=== PATIENT | female | born 1940 | race Caucasian/White ===

== ENCOUNTER 2017-03-08 09:42 | Outpatient (CLI) | payer MEDICARE, OTHER ==
--- NOTE | 2017-03-08 12:56 | RAD ---
LUMBAR SPINE 3 VIEWS: Date: 03/08/17 HISTORY: 76-year-old female with low back pain. FINDINGS: Minimal disc space narrowing at L5-S1. Mild disc osteophytosis and some mid and lower lumbar spine fa cet arthrosis. Surgical clips overlie the epigastric region. No focal bone lesion. No acute fracture. IMPRESSION: Evidence for lumbar spondylosis. No acute fracture or dislocation, or other acute process. POS: [facility]
== END 2017-03-08 09:43 | disposition home or self-care (01) ==
LOC: RAD-FRANK 09:42
PROVIDERS: ATTEND Nurse Practitioner Family
DX: M54.5 Low back pain (principal); M47.896 Other spondylosis, lumbar region
CPT/HCPCS: 72100

== ENCOUNTER 2017-11-07 20:37 | Observation (INO) | payer MEDICARE, OTHER ==
[2017-11-07] MEDS ORDERED: Lidocaine Viscous Sol 2% 15 ml UD Cup ONE (21:07)
[2017-11-07] MEDS ORDERED: Mag-Al 1200 mg/1200 mg/30 ML UDCUP ONE (21:07)
--- NOTE | 2017-11-07 21:25 | RAD ---
CHEST ONE VIEW PORTABLE: 11/07/17 INDICATION: Chest pain and chest tightness. IMPRESSION: No acute cardiopulmonary abnormality. The examination is not appreciably changed from comparison date d 03/26/16. COMMENTS: No consolidation, pleural effusion, or pneumothorax is evident. Cardiomediastinal silhouette is withi n normal limits. No acute osseous abnormality is evident. POS: [facility]
[2017-11-07 21:56] LABS: #Basophils 0.1 thou/uL (0.0-0.2); #Eosinphils 0.1 thou/uL (0.0-0.7); #Lymphocytes 1.5 thou/uL (1.20-3.40); #Monocytes 0.7 thou/uL (0.11-0.59); %Basophils 0.7 % (0.0-1.0); %Eosinophils 1.7 % (0.0-10.0); %Lymphocytes 20.7 % (21.0-51.0); %Monocytes 9.2 % (0.0-10.0); %Neutrophils 67.7 % (42.0-75.0); Hemoglobin 13.7 g/dL (12.0-16.0); Mean Corpuscular Hemoglobin 32.2 pg (27.0-31.0); Mean Platelet Volume 6.6 fL (7.4-10.4); Platelet Count 328 thou/uL (130-400); RBC Distribution Width 12.7 % (11.5-14.5); Red Blood Cell (RBC) Count 4.25 mill/uL (4.20-5.40); White Blood Cell (WBC) Count 7.4 thou/uL (4.8-10.8)
[2017-11-07 22:16] LABS: ALT (SGPT) 16 U/L (8-55); AST (SGOT) 24 U/L (5-34); Albumin 4.4 g/dL (3.4-4.8); Alkaline Phosphatase 86 U/L (40-150); Anion Gap 15 mmol/L (10-20); BUN (Urea Nitrogen) 20 mg/dL (9.8-20.1); Bilirubin, Total 0.4 mg/dL (0.2-1.2); CK (CPK) 108 U/L (29-168); Calc. Creatinine Clearance 0 mL/min (70-130); Calcium 9.4 mg/dL (7.8-10.44); Carbon Dioxide 28 mmol/L (23-31); Chloride 102 mmol/L (98-107); Estimated GFR-MDRD 45; Globulin 2.8 g/dL (2.4-3.5); Glucose 106 mg/dL (83-110); Potassium 3.7 mmol/L (3.5-5.1); Protein, Total 7.2 g/dL (6.0-8.3); Sodium 141 mmol/L (136-145)
[2017-11-07 22:28] LABS: CKMB 3.5 ng/mL (0-6.6); Troponin I Less than 0.010 ng/mL (< 0.028)
[2017-11-08] MEDS ORDERED: Acetaminophen 325 MG TAB PO PRN (00:58)
[2017-11-08] MEDS ORDERED: Amiodarone HCl 150 MG, Admixture Fee 1 EACH in Dextrose 5% in Water 100 ML IVPB SCH (01:15)
[2017-11-08] MEDS ORDERED: Amiodarone HCl 450 MG, Admixture Fee 1 EACH in Dextrose 5% in Water 250 ML IVPB SCH (01:15)
[2017-11-08 04:23] VITALS: BMI 28.0
[2017-11-08 05:27] LABS: Anion Gap 16 mmol/L (10-20); BUN (Urea Nitrogen) 18 mg/dL (9.8-20.1); Calc. Creatinine Clearance 50 mL/min (70-130); Carbon Dioxide 25 mmol/L (23-31); Chloride 104 mmol/L (98-107); Estimated GFR-MDRD 52; Glucose 109 mg/dL (83-110); Potassium 3.9 mmol/L (3.5-5.1); Sodium 141 mmol/L (136-145)
[2017-11-08 05:33] LABS: Troponin I Less than 0.010 ng/mL (< 0.028)
--- NOTE | 2017-11-08 05:39 | HP ---
CHIEF COMPLAINT: Reflux type symptoms and epigastric discomfort. HISTORY OF PRESENT ILLNESS: This patient is a 77-year-old female who has a past medical history nota ble for multiple arrhythmia issues. The patient reports some history of atrial fibrillation. She godfrey s had 3 prior ablations, which have been of limited success. She is followed by Dr. Graf and saw her last week. The patient presented to the emergency room today complaining of some diffuse chest pres sure without radiation. She had some associated nausea and felt like she was having some reflux type symptoms. She rated it as a 3-4/10 initially, but was asymptomatic at the time of the interview. S he reports that her pain was resolved with the use of a GI cocktail. The patient's workup was negati ve and the plan was for her to discharge to home; however, while they were getting the patient prepar ed for disposition she had a run of nonsustained V-tach over about 10 beats. Therefore, we were call ed for further evaluation. Otherwise, the patient reports she has had some intermittent headache and some chronic GI symptoms related to her irritable bowel syndrome, but nothing new. REVIEW OF SYSTEMS: Notable for urinary incontinence which is chronic. She wears a pad for that. Diana phillips is having some loose stools as part of her irritable bowel syndrome. Otherwise, a 10-system review was unremarkable. PAST MEDICAL HISTORY: Notable for gastroesophageal reflux, atrial fibrillation, macular degeneration , irritable bowel syndrome, hypothyroidism. The patient of note did have an echocardiogram performed in 03/2016 which was essentially normal with a preserved ejection fraction. PAST SURGICAL HISTORY: The patient has had cardiac ablation x3, most recently in [place]. She has al so had [address] Graf, but had significant reaction thought to be allergic and they were subsequently both removed. FAMILY HISTORY: Reviewed, nothing of significance is known. SOCIAL HISTORY: The patient is a nonsmoker, nondrinker, nondrug user. She is . PRIMARY CARE PHYSICIAN: Her PCP is Lianne Giraldo in [place]. CODE STATUS: She is a full code and her surrogate decision maker would be her daughter, Dai. ALLERGIES: None. CURRENT MEDICATIONS: Losartan 100 mg p.o. daily, Lasix 40 mg daily, pantoprazole 40 mg every day, am lodipine 5 mg daily, pravastatin 40 mg day, trazodone 50 mg at bedtime, colestipol 1 gram q.a.m., lev othyroxine 75 mcg every day, Xarelto 20 mg every day, vitamin D3 5000 units every day, ICAPS 280 mg e very day, Centrum Silver 1 p.o. daily. PHYSICAL EXAMINATION: VITAL SIGNS: BP was 136/63, pulse 70, respirations 20, O2 sat 95% on room air. GENERAL APPEARANCE: Age appropriate female, in no distress. She is awake, alert, oriented, pleasant , cooperative. HEENT: PERRL. No OP lesions. NECK: Supple and symmetric without lymphadenopathy, JVD, or carotid bruits. CARDIOVASCULAR: Regular rate and rhythm without murmurs, gallops or rubs. LUNGS: Clear to auscultation bilaterally with good chest wall expansion, air exchange. ABDOMEN: Soft, she has very mild lower abdominal tenderness which she relates to be normal for her I BS. Nondistended, positive bowel sounds, no masses, no organomegaly. EXTREMITIES: Warm and dry. There is trace edema. NEUROLOGIC: Patient is oriented x3. No focal deficits. SKIN: Reveals a small erythematous nodule on the posterior left calf area. PSYCHIATRIC: Normal affect, normal behavior. LABORATORY DATA: White count 7.4, hemoglobin 13.7, platelets 328. Sodium 141, potassium 3.7, chlori de 102, CO2 of 28, BUN 20, creatinine 1.16, glucose 106, calcium 9.4, AST is 26, ALT 16. CK is 108, troponin less than 0.01. BNP 186.6. Chest x-ray shows no consolidation, effusion or pneumothorax, normal cardiac silhouette. ASSESSMENT AND PLAN: 1. Chest pain. The patient had an episode of chest pain which initially appeared to be more cardiac in nature. The patient has had significant prior cardiac assessments and no known history of johnson ry disease. She did have multiple episodes of supraventricular tachycardia with reasonable rate in [facility] emergency department and one episode in which she flipped the axis and widened the QRS complex con sistent with a possible ventricular tachycardia. The patient will be admitted to the telemetry unit in observation status. She will have serial cardiac isoenzymes. The patient has been started on ami odarone load in the emergency department. We will obtain a magnesium level and determine further int ervention based on how she appears on the monitor through the night. 2. Renal: The patient's creatinine is slightly abnormal. She has had similar readings intermittent ly in the past, but it looks like her baseline ranges between the 0.86 and the 1.16 range. We will r echeck in the morning. It is unclear if this represents an acute renal injury. 3. Hypothyroidism. Continue with the patient's usual dose of levothyroxine. 4. Chronic irritable bowel syndrome, stable. 5. History of gastroesophageal reflux. We will continue with the PPI.
[2017-11-08] MEDS ORDERED: Non-Formulary Item 1 EACH (Losartan Potassium [Losartan Potassium] 100 MG) PO SCH (09:00)
[2017-11-08] MEDS ORDERED: Non-Formulary Item 1 EACH (Multivitamin [Multi-Vitamin Daily] 1 TABLET) PO SCH (09:00)
[2017-11-08] MEDS ORDERED: Furosemide 40 MG TAB PO SCH (09:00)
[2017-11-08] MEDS ORDERED: Non-Formulary Item 1 EACH (Cholecalciferol (Vitamin D3) [Vitamin D3] 5,000 UNIT) PO SCH (09:00)
[2017-11-08] MEDS ORDERED: Levothyroxine Sodium 75 MCG TAB PO SCH (09:00)
[2017-11-08] MEDS: Amlodipine 5 MG TAB PO SCH ×2 (10:45→12:55)
[2017-11-08] MEDS: Multivit, Therapeutic 1 TAB PO SCH ×2 (10:46→12:53)
[2017-11-08] MEDS: Losartan 25 MG TAB PO SCH ×2 (10:46→12:55)
[2017-11-08] MEDS: Furosemide 80 MG TAB PO SCH ×2 (10:46→12:55)
[2017-11-08] MEDS ORDERED: ADENOSINE 60 MG/20 ML VIAL ONE (11:23)
--- NOTE | 2017-11-08 13:53 | CON ---
DATE OF CONSULTATION: 11/08/2017 HISTORY OF PRESENT ILLNESS: Ms. Alexander is a very pleasant 77-year-old female I followed for many yea rs. She has had no history of known coronary artery disease in the past. She had a negative stress test a little over a year ago. She has had allergic reaction pacemakers were inserted, then godfrey d to be removed due to sick sinus syndrome. She has had ablations for her tachycardia, for atrial fi brillation and flutter, I believe, and has been doing well since her last ablation little over a year ago. She was at home last couple of days and has been doing well. 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 Around 7:00 last night, she took her blood pressur e, blood pressure was slightly elevated at 144/97. She waited for a while, took it again, was 144/10 1 and she said she felt some chest pressure. She had some uncomfortable typing feeling with some mil d nausea. She does have a history of gastroesophageal reflux disease and she occasionally feels ligh theaded, but when she presented to the emergency room and enzymes are negative. EKG was unremarkable and then prior to being discharged. She had a short run of nonsustained ventricular tachycardia, wa s admitted for further evaluation. PAST MEDICAL HISTORY: Significant for the sick sinus syndrome, two pacemaker insertions and then aga in removal, both on the left and the right infraclavicular areas due to allergic reaction due to prob ably the coating on the pacemakers. She is status post ablation. She has irritable bowel syndrome a nd gastroesophageal reflux disease. SOCIAL HISTORY: She has children who are alive and well. She is a . She has no alcohol or tob acco abuse. FAMILY HISTORY: Noncontributory. MEDICATIONS PRIOR TO ADMISSION: Included losartan, Lasix, Protonix, amlodipine, pravastatin, trazodo ne, colestipol, Xarelto, levothyroxine, and vitamins. ALLERGIES: None. REVIEW OF SYSTEMS: A 12-point review of systems is unremarkable as it was noted in history of presen t illness. She does have some urinary incontinence, however, and some gastroesophageal reflux diseas e and occasionally has some chest pressure, but she is always at rest and not doing exertion. PHYSICAL EXAMINATION: VITAL SIGNS: Reveals a blood pressure 107/53, heart rate is 80 and regular, temperature is afebrile, respiratory rate 16. HEENT: Shows head to be normocephalic and atraumatic. Carotid pulses are present. There were no br uits noted. There is no JVD. The thyroid is not enlarged. Oral mucosa was pink and moist. CHEST: Clear to auscultation without rales, rhonchi or wheezing. She has 2 well healed surgical inc isions under both the right and left infraclavicular areas. CARDIOVASCULAR: Exam reveals a regular rate and rhythm with occasional ectopy. She has no gross mur murs. ABDOMEN: Soft and nontender with positive bowel sounds. No organomegaly or masses are noted. Femor al pulses are present. EXTREMITIES: Showed no clubbing, cyanosis or edema. Pedal pulses are present. NEUROLOGIC: The patient appears to be fully intact. SKIN: Warm and dry. LABORATORY AND DATA: Creatinine of 1.03 with a potassium of 3.9. BNP was 186. Negative cardiac enz ymes were noted. Her WBC is 7.4. Chest x-ray is unremarkable. EKG shows a sinus rhythm with occasi onal ectopy with occasional PACs. There is not a tracing of the nonsustained ventricular tachycardia in the chart from the emergency room, but it was stated that she did have a nonsustained ventricular tachycardia episode. IMPRESSION: 1. Elderly female with some mild chest discomfort which is most likely noncardiac in nature. She di d have a negative stress test a little over a year ago prior to undergoing her last ablation. We jerod l schedule her for a repeat stress test to rule out evidence of underlying ischemia since she did hav e a short run of nonsustained ventricular tachycardia. If this is positive, she will need to undergo further evaluation by cardiac catheterization. If negative, she could be discharged later today. 2. History of arrhythmias. She is status post ablation of atrial fibrillation. She has been doing quite well with this and has had no further problems. She still remains on Xarelto. 3. History of intolerance to pacemaker material. She has had 2 pacemakers removed, both at [facility] t times, almost within 6 months to a year. 4. History of irritable bowel syndrome, gastroesophageal reflux disease. This is stable. It may be some of the etiology of her chest discomfort. 5. Hypothyroidism. We will continue her present medications. Further recommendations will depend o n the results of the stress test, which will be performed later today.
[2017-11-08 14:39] LABS: Troponin I Less than 0.010 ng/mL (< 0.028)
[2017-11-08 15:22] VITALS: BP 124/58; TEMP 98.2
--- NOTE | 2017-11-08 15:25 | NM ---
MYOCARDIAL PERFUSION SCAN: INDICATIONS: Chest pain. TECHNIQUE: The patient was given 30 millicuries of technetium labeled sestamibi for stress imaging and 9.5 sam curies for rest imaging. The patient was stressed according to adenosine protocol. The left ventricle was imaged with SPECT imaging with CT attenuation. FINDINGS: There is no evidence of reversible ischemia. Symmetric activity loss in the inferior wall is seen on stress and rest images. There is mild left ventricular dilatation. Wall motion survey shows mild hypokinesis and dyskinesis; however, ejection fraction is recorded at 69%. IMPRESSION: No evidence of reversible ischemia. POS: [facility]
[2017-11-08] MEDS ORDERED: traZODone HCl 50 MG TAB PO SCH (21:00)
[2017-11-08] MEDS ORDERED: Rivaroxaban 10 MG TAB PO SCH (21:00)
[2017-11-08] MEDS ORDERED: Non-Formulary Item 1 EACH (Rivaroxaban [Xarelto] 20 MG) PO SCH (21:00)
[2017-11-08] MEDS ORDERED: Atorvastatin Calcium 10 MG TAB PO SCH (21:00)
[2017-11-08] MEDS ORDERED: Pravastatin Sodium 40 MG TAB PO SCH (21:00)
--- NOTE | 2017-11-08 23:21 | DIS ---
DATE OF ADMISSION: 11/08/2017 DATE OF DISCHARGE: 11/08/2017 PRIMARY CARE PHYSICIAN: Dr. Lianne Crane. DISCHARGE DIAGNOSES: 1. Chest pain. 2. Nonsustained ventricular tachycardia. CONDITION OF PATIENT AT THE TIME OF DISCHARGE: Stable. I assessed Ms. Alexander on the day of discharg e. She reports the chest pain has resolved. Vital signs are stable. S1 and S2 are heard, regular. Lungs are clear to auscultation bilaterally. CONSULTATIONS DURING THIS HOSPITALIZATION: Cardiology, Dr. Graf. DISCHARGE MEDICATIONS: No change was made to her preadmission home medications as dictated on histor y and physical note dated ON 11/07/[address] Hannah. HOSPITAL COURSE: Ms. Alexander is a pleasant 77-year-old lady who was admitted to [facility] on 11/07/2017 for chest pain. Please refer to Dr. Hannah's history and physical note d ated on 11/07/2017 for further details. She was seen by Cardiology service. Her chest pain resolved . She underwent nuclear stress test on 11/08/2017, which did not show any evidence of reversible isc hemia. Her left ventricular ejection fraction was 69%. She had mild left ventricular dilatation. W all motion survey showed mild hypokinesis and dyskinesis. She is advised to resume all her preadmission home medications including anticoagulants. Many thanks for allowing me to participate in your patient's care. Please feel free to contact me wi th any questions or concerns. On the day of discharge, she had a normal Chem-7. DISCHARGE DESTINATION: Home.
== END 2017-11-08 16:59 | disposition home or self-care (01) ==
LOC: ERS 20:37 → 2SW 11-08 02:03
PROVIDERS: ADMIT Internal Medicine; ATTEND Internal Medicine
DX: R07.89 Other chest pain (principal); I48.91 Unspecified atrial fibrillation; K21.9 Gastro-esophageal reflux disease without esophagitis; K58.9 Irritable bowel syndrome, unspecified; E03.9 Hypothyroidism, unspecified; I49.5 Sick sinus syndrome; Z79.01 Long term (current) use of anticoagulants; Z79.899 Other long term (current) drug therapy; Z98.890 Other specified postprocedural states
CPT/HCPCS: 71045; 78452; 80048; 80053; 82550; 82553; 83735; 83880; 84484 ×3; 85025; 93005; 93017; 96365; 96366; 96374; 96376; 99285; A9500; G0378 ×2; 36415; J0153; J0282; J7070

== ENCOUNTER 2018-03-04 21:26 | Inpatient (IN) | payer MEDICARE, OTHER ==
[~2018-03-04 21:26] MED LIST: Iopamidol 370 76% 100 ML VIAL ONE
[2018-03-04 21:57] LABS: #Lymphocytes 1.1 thou/uL (1.20-3.40); #Monocytes 0.7 thou/uL (0.11-0.59); #Neutrophils 8.1 thou/uL (1.40-6.50); %Basophils 0.4 % (0.0-1.0); %Eosinophils 0.3 % (0.0-10.0); %Lymphocytes 11.1 % (21.0-51.0); %Monocytes 6.7 % (0.0-10.0); %Neutrophils 81.5 % (42.0-75.0); Mean Corpuscular HGB CONC 33.8 g/dL (32.0-36.0); Mean Corpuscular Hemoglobin 30.4 pg (27.0-31.0); Mean Corpuscular Volume 89.9 fL (78.0-98.0); Mean Platelet Volume 7.8 fL (7.4-10.4); Platelet Count 484 thou/uL (130-400); RBC Distribution Width 12.8 % (11.5-14.5); Red Blood Cell (RBC) Count 4.28 mill/uL (4.20-5.40)
--- NOTE | 2018-03-04 22:07 | RAD ---
PORTABLE CHEST: HISTORY: Abdomen and chest pain. COMPARISON: 11/07/2017 FINDINGS: Heart size is within normal limits for the portable technique. There are atherosclerotic changes of the aorta. The lungs are clear of infiltrates. IMPRESSION: No active intrathoracic disease. POS: [facility]
[2018-03-04 22:12] LABS: ALT (SGPT) 24 U/L (8-55); AST (SGOT) 39 U/L (5-34); Albumin 4.4 g/dL (3.4-4.8); Alkaline Phosphatase 85 U/L (40-150); Anion Gap 17 mmol/L (10-20); BUN (Urea Nitrogen) 17 mg/dL (9.8-20.1); Bilirubin, Total 0.4 mg/dL (0.2-1.2); CK (CPK) 282 U/L (29-168); Calc. Creatinine Clearance 0 mL/min (70-130); Calcium 9.8 mg/dL (7.8-10.44); Carbon Dioxide 27 mmol/L (23-31); Chloride 100 mmol/L (98-107); Estimated GFR-MDRD 35; Globulin 3.5 g/dL (2.4-3.5); Glucose 152 mg/dL (83-110); Lipase 19 U/L (8-78); Potassium 3.7 mmol/L (3.5-5.1); Protein, Total 7.9 g/dL (6.0-8.3); Sodium 140 mmol/L (136-145)
[2018-03-04 22:15] LABS: Troponin I Less than 0.010 ng/mL (< 0.028)
[2018-03-04 22:19] LABS: CKMB 7.1 ng/mL (0-6.6)
[2018-03-04 22:20] LABS: Bilirubin Small (Negative); Blood, Urine Negative (Negative); Clarity TURBID (Clear); Glucose, Urine (Dipstick) Negative (Negative); Leukocyte Large (Negative); Nitrite Negative (Negative); Protein, Urine (Dipstick) Negative (Neg-Trace); Specific Gravity, Urine 1.017 (1.002-1.036); pH, Urine 5.5 (5.0-9.0)
[2018-03-04 22:29] LABS: Bacteria/HPF 4+ HPF (None Seen)
[2018-03-04 22:30] LABS: Pathc Cast-AUWi Flag 5.66 (0-2.49)
[2018-03-04 22:37] LABS: Hyaline Casts/LPF 7-10 HYALINE CAST LPF (0-3 Hyaline); RBC/HPF 0-3 HPF (0-3)
[2018-03-04 22:38] LABS: Crystals/HPF 1+ CA OXALATE HPF (Negative)
[2018-03-04] MEDS ORDERED: Ondansetron PF 4 MG/2 ML Vial ONE ×2 (22:41→22:52)
[2018-03-04] MEDS ORDERED: Morphine 4 MG/ML VIAL ONE (22:41)
--- NOTE | 2018-03-04 23:13 | CT ---
CT ABDOMEN AND PELVIS WITH INTRAVENOUS CONTRAST: HISTORY: Abdominal pain, generalized, onset the day after Thanksgiving. Chronic diarrhea. History of appende ctomy, cholecystectomy, hernia repair, and hysterectomy. The hernia repair was reportedly a wrap for reflux. COMPARISON: CT examination from 04/13/2010. FINDINGS: The lung bases are clear. The liver has a somewhat elongated right lobe, measuring 21 cm in length. The left lobe is small. T he spleen is normal in size. The pancreas shows no evidence of mass. The gallbladder has been remov ed. There is some minimal biliary ductal prominence, which is felt to be on the basis of the cholecy stectomy. The right adrenal gland is normal. The left adrenal mass is again identified. It measures approxima tely 2.5 cm in size and appears fairly stable. The right and left kidneys are normal in size and not obstructed. Hypodensities in both kidneys, which are too small to characterize, statistically most likely represent cysts. There is no significant periaortic or mesenteric adenopathy. The patient appears to have undergone an anterior abdominal wall hernia repair. There is an abnormal pattern of the small bowel. This is probably the sequela of the multiple surgeries. A small groupi ng of the small bowel, specifically a portion of the ileum, is displaced along the right lateral andria in of the inferior portion of the right lobe of the liver. In addition, in the central abdomen, is a centrally grouped collection of small bowel, some of which shows some mild dilatation, suggesting th is is a partial small bowel obstruction. This is probably related to either adhesions or some type of internal hernia causing this appearance. This central grouping of bowel begins in the mid abdomen a nd extends to the pelvis. Colonic diverticulosis is noted. These changes are most pronounced in the sigmoid colon region. No evidence of any significant free fluid. No adenopathy or mass. IMPRESSION: 1. Abnormal appearance to the small bowel. Specifically, there is a centrally grouped collection of small bowel, which is in the mid abdomen and upper pelvis region. Some of the loops within this area are dilated, compatible with a partial small bowel obstruction, associated with these findings. Thi s is either related to a group of small bowel loops that are contained by adhesions or some type of i nternal hernia. 2. Postoperative cholecystectomy change. 3. Colonic diverticulosis. POS: [facility]
[2018-03-05 02:24] LABS: Lactic Acid 1.4 mmol/L (0.5-2.2)
[2018-03-05] MEDS ORDERED: Ondansetron ODT 4 MG TAB SL PRN (03:58)
[2018-03-05] MEDS ORDERED: Ondansetron PF 4 MG/2 ML Vial IVP PRN ×2 (03:58→08:51)
[2018-03-05] MEDS ORDERED: Morphine 4 MG/ML VIAL SLOW IVP PRN (03:58)
[2018-03-05] MEDS ORDERED: D5 1/2 NS w/20 mEq KCL 1,000 ML IV SCH (04:00)
[2018-03-05 04:48] VITALS: BMI 30.5
[2018-03-05] MEDS ORDERED: hydrALAZINE 20 MG/ML VIAL SLOW IVP PRN (08:51)
[2018-03-05] MEDS ORDERED: Acetaminophen 1,000 MG in Premix Bag 1 BAG IVPB PRN (08:55)
[2018-03-05] MEDS ORDERED: Ketorolac Tromethamine 30 MG/ML VIAL IVP PRN (08:55)
[2018-03-05] MEDS ORDERED: Famotidine/PF 20 mg/2ml Vial SLOW IVP SCH ×2 (09:00→21:00)
[2018-03-05] MEDS ORDERED: Lactated Ringer's 1,000 ML IV SCH (09:00)
--- NOTE | 2018-03-05 09:11 | RAD ---
AP LOWER CHEST AND UPPER ABDOMEN: History: NG tube placement. FINDINGS: AP view of lower chest and upper abdomen demonstrates NG tube in place. The side port is just above t he gastroesophageal junction. The distal aspect is in the left upper quadrant of the abdomen. The NG tube should be advanced approximately 8-10 cm to be in optimum position. IMPRESSION: NG tube needs to be advanced approximately 8-10 cm. POS: [facility]
[2018-03-05] MEDS ORDERED: Magnesium Citrate 300 ML BOT PER TUBE SCH ×2 (10:00→12:45)
--- NOTE | 2018-03-05 12:10 | HP ---
HISTORY OF PRESENT ILLNESS: Dayanara Alexander is a 77-year-old female, well known to me. She has performed numerous operations before in the past. She is admitted on this occasion as she is noted to have chronic diarrhea, 1 to 2 loose stools a day. She took Imodium a few days ago, has experienced no bowel movement since Sunday (today is Sunday). The patient had some abdominal discomfort, presented to the emergency room, had a CAT scan demonstrating changes possibly consistent with a partial bowel obstruction. She does have, however, significant constipation on my personal overview of her CAT scan. There is some mildly dilated loops of small bowel. ALLERGIES: NONE. TOBACCO: None. ALCOHOL: Socially. MEDICATIONS: 1. Omeprazole daily. 2. Colestipol daily. 3. Vitamin D3 daily. 4. Amlodipine 5 mg b.i.d. 5. Levothyroxine 75 mcg a day. 6. Furosemide 80 mg a day. 7. Protonix 40 mg b.i.d. 8. Multivitamins daily. 9. Losartan 100 mg daily. 10. Trazodone 100 mg at bedtime. 11. Xarelto 20 mg at bedtime. 12. Pravachol 40 mg at bedtime. PAST SURGICAL HISTORY: In 1998, I performed laparoscopic adhesiolysis to gain access to outside laparoscopic video floppy Jett fundoplication and repair of her hiatal hernia. In December 1998, laparotomy, evacuation of intraabdominal abscess, resection, debridement of old mesh, and adhesiolysis to gain access to the above-described procedures. In 2004, Dr. Gonzalez performed upper endoscopy, noting an intact fundoplication, normal upper endoscopy. In 2010, the patient had incisional hernia, laparoscopic adhesiolysis, and reduction of incarcerated incisional hernia and repair with a 10 x 15 cm Proceed mesh with transabdominal fascia, nonabsorbable sutures placed. The patient had open cholecystectomy in 1980, midline upper incision. She had a total abdominal hysterectomy, bilateral salpingo-oophorectomy in the past. She had appendectomy with a cholecystectomy. She had the procedures that are performed as described above. The patient has had two pacemakers in the past removed because of wound site infections and wound problems. She has had an echocardiogram in the past with normal ejection fraction, normal cardiac catheterization in 2008. She is followed by Dr. Graf. The patient had a colonoscopy in 2012, noting benign findings on biopsy. She does not recall when she last had an EGD. PAST MEDICAL HISTORY: 1. Mild reflux, although much improved since her anti-reflux surgery, although she does take a PPI for mild reflux symptoms. She does not recall when Dr. Gonzalez performed her last upper endoscopy. 2. Hypertension. 3. Hypothyroidism, on anticoagulation, Xarelto. She is followed by Dr. Graf, last saw her 2 to 3 months ago and on the records, it is noted that she had cardiac stress test in October 2017 with normal ejection fraction and no reversible ischemia. REVIEW OF SYSTEMS: Noncontributory. NG tube in place, has had minimal output. PHYSICAL EXAMINATION: VITAL SIGNS: Height 5 feet, weight 161 pounds, 30 BMI. Temperature 97.9, pulse 64, blood pressure 119/66. HEAD, EARS, EYES, NOSE, AND THROAT: Unremarkable. LUNGS: Clear to auscultation. CARDIAC: Regular rhythm without murmur or gallop. Scars from pacemaker placement removal, left upper chest. ABDOMEN: Intact upper incision without hernia. Soft with occasional bowel sounds. No significant tympany. EXTREMITIES: Unremarkable. LABORATORY DATA: White count 10, hemoglobin 13. Basic metabolic profile is normal with mildly elevated creatinine to 1.43, which she has had intermittently in the past. ASSESSMENT AND PLAN: 1. Abdominal pain and obstipation after taking Imodium. She has chronic diarrhea, 1 to 2 loose stools a day, she describes these as small and moderate volume. Since taking Imodium, she has not had a bowel movement last week. On review of her CAT scan, she has significant constipation and some mild dilatation of small bowel segments, but no clear indication of a bowel obstruction. She has intact abdominal wall after multiple operations for incisional hernia. No evidence of incisional hernia currently. At this point, we will obtain a small-bowel follow-through, abdominal x-rays, and await the results. I expect that we will be able to remove her NG tube later today. 2. Chronic anticoagulation due to atrial fibrillation intermittently. 3. History of two pacemakers placed and removed. 4. Hypertension. 5. Hypothyroidism. Job ID: [id number]
--- NOTE | 2018-03-05 14:25 | RAD ---
GASTROGRAFIN SMALL BOWEL: History: Small bowel obstruction. FINDINGS: Initial supine marble installation helper abdomen radiograph demonstrates a nonspecific bowel gas pattern. There is contra st material noted in the urinary bladder. Multiple contrast opacified small bowel loops are present. Contrast opacified the right hemicolon on the 1 hour 30 minutes. Contrast opacified in the transverse colon in 1 hour 45 minutes image. IMPRESSION: No evidence of high grade obstruction. POS: [facility]
[2018-03-05] MEDS: Amlodipine 5 MG TAB PO SCH (20:03)
[2018-03-05] MEDS ORDERED: traZODone HCl 50 MG TAB PO SCH (21:00)
[2018-03-05] MEDS ORDERED: Non-Formulary Item 1 EACH (Rivaroxaban [Xarelto] 20 MG) PO SCH (21:00)
[2018-03-05] MEDS ORDERED: Pravastatin Sodium 40 MG TAB PO SCH (21:00)
[2018-03-06] MEDS ORDERED: Levothyroxine Sodium 75 MCG TAB PO SCH (06:00)
[2018-03-06] MEDS ORDERED: Polyethylene Glycol 3350 17 GM Packet PO SCH (09:00)
[2018-03-06] MEDS ORDERED: Multivit, Therapeutic 1 TAB PO SCH (09:00)
[2018-03-06] MEDS ORDERED: Furosemide 80 MG TAB PO SCH (09:00)
[2018-03-06] MEDS ORDERED: OMEPRAZOLE PO SCH (09:00)
[2018-03-06] MEDS ORDERED: Losartan 25 MG TAB PO SCH (09:00)
[2018-03-06] MEDS ORDERED: SODIUM BICARBONATE PO SCH (09:00)
[2018-03-06] MEDS: Amlodipine 5 MG TAB PO SCH (09:02)
--- NOTE | 2018-03-06 11:35 | PRG ---
DATE OF SERVICE: 03/06/2018 SUBJECTIVE: Ms. Alexander is doing well today. She had a small-bowel follow-through yesterday, it was normal. She has had multiple bowel movements. She complains of mild hemorrhoid problems and bleeding. She has had recent colonoscopies. OBJECTIVE: VITAL SIGNS: Temperature 98.4 degrees, heart rate 76, blood pressure 104/60. LUNGS: Clear to auscultation. CARDIAC: Regular rate and rhythm without murmur or gallop. ABDOMEN: Flat, soft, and nontender. EXTREMITIES: Unremarkable. LABORATORY DATA: Laboratories, none. ASSESSMENT AND PLAN: Resolved partial bowel obstruction and constipation. Keep followup appointment with Dr. Gonzalez. This event occurred after consuming Imodium, which she often does for her one or two loose stools a day. She also takes cholestyramine with meals. She has asked that she can continue doing this. I said, do so if it helps with her loose stools. I have advised her to minimize Imodium use and to use fiber daily. She will follow up with me as needed if she continues to have problems with her hemorrhoids. She will keep her appointment with Dr. Gonzalez next week. Job ID: [id number]
[2018-03-06 12:03] VITALS: BP 122/72; TEMP 98.2
[2018-03-06] MEDS ORDERED: Citrucel 500 MG TAB PO SCH (21:00)
--- NOTE | 2018-03-07 03:11 | DIS ---
DATE OF ADMISSION: 03/05/2018 DATE OF DISCHARGE: 03/06/2018 DISCHARGE DIAGNOSES: 1. 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 2. More likely primary problem is constipation related to taking Imodium, which she commonly does for one or two loose stools a day. PROCEDURES AT THIS HOSPITALIZATION: CT scan of abdomen and pelvis revealed significant constipation, not reported by radiologist, but some minimally dilated small bowel loops, possibly consistent with a partial bowel obstruction. Multiple prior operations; laparoscopic Jett fundoplication performed in the past and open cholecystectomy in 1980. Laparotomy, evacuation of intraabdominal abscess, resection, debridement of old mesh, and adhesiolysis in 2004. Upper endoscopy by Dr. Gonzalez in 2010. Incisional hernia repair, laparoscopic with mesh and reduction of incarcerated incisional hernia and repair with 10 x 15 cm Proceed mesh. HISTORY: A 77-year-old female with chronic loose stools, takes cholestyramine and occasional Imodium. She took an Imodium and had abdominal pain, cramps, and nausea. She was admitted with a CAT scan, suggesting a partial bowel obstruction. She had an NG tube placed overnight. She underwent a small bowel follow-through colon. She had multiple bowel movements. She has been given Mag citrate. She complains of bleeding hemorrhoids afterwards. She is on Xarelto at home. DISCHARGE MEDICATIONS: The patient at this time is discharged home to resume her home medications of omeprazole, colestipol, vitamin D3, amlodipine, levothyroxine, furosemide, Protonix, multivitamins, losartan, trazodone, Xarelto, Pravachol, and take Preparation H for hemorrhoids, minimize Imodium use, and to use fiber daily, Citrucel, or other fiber zngs-[id number]-bumgpzd replacement. DISCHARGE INSTRUCTIONS: Keep appointment with Dr. Gonzalez. Follow up with Dr. Day for any persistent bleeding hemorrhoids, warm to hot baths 2 to 3 times a day for any hemorrhoids. Preparation H [id number]-[id number] hemorrhoidal remedies. Job ID: [id number]
--- NOTE | 2018-03-08 15:05 | DIS ---
DATE OF ADMISSION: 03/05/2018 DATE OF DISCHARGE: 03/06/2018 ADDENDUM: Addition to her diagnosis; urinary tract infection, Escherichia coli greater than . Addition to discharge medications; Augmentin 500 b.i.d. for five days. Job ID: [id number]
--- NOTE | 2018-03-09 11:57 | EKG ---
Test Reason : Blood Pressure : / mmHG Vent. Rate : 065 BPM Atrial Rate : 065 BPM P-R Int : 184 ms QRS Dur : 098 ms QT Int : 514 ms P-R-T Axes : 072 -03 151 degrees QTc Int : 534 ms Normal sinus rhythm with sinus arrhythmia Left ventricular hypertrophy with repolarization abnormality Prolonged QT Abnormal ECG Confirmed by ANISHA ARGUETA, ARRON ([id number]), photographic editor VIKTOR CUADRA ([id number]) on 03/09/2018 11:57:05 AM Referred By: Confirmed By:ARRON LANCASTER MD
== END 2018-03-06 12:55 | disposition home or self-care (01) | DRG 392 ==
LOC: ERS 21:26 → SURG A 03-05 03:55
PROVIDERS: ADMIT Specialist; ATTEND Specialist
DX: K59.00 Constipation, unspecified (principal); K56.690 Other partial intestinal obstruction; N39.0 Urinary tract infection, site not specified; I48.2 Chronic atrial fibrillation; Z79.01 Long term (current) use of anticoagulants; Z95.0 Presence of cardiac pacemaker; I10 Essential (primary) hypertension; E03.9 Hypothyroidism, unspecified; B96.20 Unspecified Escherichia coli [E. coli] as the cause of diseases classified elsewhere
CPT/HCPCS: 36415; 71045; 74177; 74250; 80053; 81003; 81015; 82550; 82553; 83605; 83690; 83880; 84484; 85025; 87040; 87077; 87086; 87186; 93005; J0131; J1956; J2270; J2405

== ENCOUNTER 2018-03-10 12:45 | Emergency (ER) | payer MEDICARE, OTHER ==
[2018-03-10 13:29] LABS: #Lymphocytes 1.3 thou/uL (1.20-3.40); #Monocytes 0.7 thou/uL (0.11-0.59); #Neutrophils 8.4 thou/uL (1.40-6.50); %Basophils 0.4 % (0.0-1.0); %Eosinophils 0.5 % (0.0-10.0); %Lymphocytes 12.8 % (21.0-51.0); %Monocytes 6.9 % (0.0-10.0); %Neutrophils 79.5 % (42.0-75.0); Hemoglobin 12.3 g/dL (12.0-16.0); Mean Corpuscular HGB CONC 33.6 g/dL (32.0-36.0); Mean Corpuscular Hemoglobin 30.5 pg (27.0-31.0); Mean Corpuscular Volume 90.8 fL (78.0-98.0); Mean Platelet Volume 6.9 fL (7.4-10.4); Platelet Count 413 thou/uL (130-400); RBC Distribution Width 12.7 % (11.5-14.5); Red Blood Cell (RBC) Count 4.04 mill/uL (4.20-5.40); White Blood Cell (WBC) Count 10.5 thou/uL (4.8-10.8)
[2018-03-10 13:39] LABS: INR-International Normal Ratio 1.3; PTT 42.1 SEC (22.9-36.1); Prothrombin Time 16.2 SEC (12.0-14.7)
[2018-03-10] MEDS ORDERED: Iopamidol 370 76% 100 ML VIAL ONE (13:42)
[2018-03-10 13:50] LABS: ALT (SGPT) 20 U/L (8-55); AST (SGOT) 21 U/L (5-34); Albumin 3.8 g/dL (3.4-4.8); Alkaline Phosphatase 88 U/L (40-150); Anion Gap 13 mmol/L (10-20); BUN (Urea Nitrogen) 11 mg/dL (9.8-20.1); Bilirubin, Total 0.7 mg/dL (0.2-1.2); Calc. Creatinine Clearance 0 mL/min (70-130); Calcium 9.2 mg/dL (7.8-10.44); Carbon Dioxide 27 mmol/L (23-31); Chloride 100 mmol/L (98-107); Estimated GFR-MDRD 55; Globulin 2.8 g/dL (2.4-3.5); Glucose 99 mg/dL (83-110); Potassium 3.1 mmol/L (3.5-5.1); Protein, Total 6.6 g/dL (6.0-8.3); Sodium 137 mmol/L (136-145)
[2018-03-10] MEDS ORDERED: Potassium Chloride 20 MEQ TAB ONE (14:26)
--- NOTE | 2018-03-10 16:43 | CT ---
CT ABDOMEN AND PELVIS WITH IV CONTRAST: 03/10/2018 HISTORY: Abdominal pain and rectal bleeding with associated nausea. COMPARISON: 03/04/2018 FINDINGS: There is dependent bibasilar atelectasis. Post cholecystectomy changes are seen. Surgical clips are seen in the upper abdomen. Subcentimeter, adl-zkcug-no-characterize, hypodense lesions are again seen, with stable exophytic cys ts at the lateral aspect, mid portion, left kidney. A stable left adrenal mass is again noted and unchanged in size. There is a stable subcentimeter, izi-dmqzg-dw-characterize hypodense lesion in the lateral segment of the left hepatic lobe. The spleen, pancreas, right adrenal gland, and urinary bladder demonstrate a normal CT appearance. Again noted within the central abdomen and upper pelvis are dilated loops of bowel, which are fluid a nd gas filled. These dilated loops of bowel are grouped within the central abdomen and pelvis, and t he dilated loops of small bowel area again worrisome for a partial small bowel obstruction. Findings could be related to a closed loop type obstruction due to either adhesion or internal hernia. Never -the-less, this is a stable finding. There now appears to be mild thickening involving the rectum, with adjacent perirectal inflammatory c hanges, suggesting proctitis. Colonic diverticulosis is present. There is evidence of a hysterectomy. Vascular calcifications are seen in the abdominal aorta and iliac arteries. No free fluid, fluid collection, or lymphadenopathy is seen in the abdomen or pelvis. IMPRESSION: 1. Interval development of mild circumferential bowel wall thickening involving the rectum with dayana cent perirectal inflammatory changes. Findings are suggestive of proctitis. 2. Dilated loops of small bowel within the central lower abdomen and pelvis, similar to the prior st udy, which are dilated and fluid-filled. Findings are again worrisome for a partial small bowel obst ruction, which may be related to a closed loop type obstruction, secondary to either adhesions or an internal hernia. 3. Stable left adrenal lesion. POS: [facility]
== END 2018-03-10 17:29 | disposition home or self-care (01) ==
LOC: ERS 12:45
DX: K62.5 Hemorrhage of anus and rectum (principal); K56.600 Partial intestinal obstruction, unspecified as to cause; K62.89 Other specified diseases of anus and rectum; I48.91 Unspecified atrial fibrillation; E78.5 Hyperlipidemia, unspecified; I11.0 Hypertensive heart disease with heart failure; I50.9 Heart failure, unspecified; E05.90 Thyrotoxicosis, unspecified without thyrotoxic crisis or storm; K21.9 Gastro-esophageal reflux disease without esophagitis; Z79.899 Other long term (current) drug therapy; Z79.01 Long term (current) use of anticoagulants
CPT/HCPCS: 36415; 74177; 80053; 82274; 85025; 85610; 85730; 86850; 86900; 86901

== ENCOUNTER 2018-03-12 12:46 | Outpatient (CLI) | payer MEDICARE, OTHER ==
[2018-03-12] MEDS ORDERED: Magnevist 469MG/ML 20 ML VIAL ONE (17:12)
--- NOTE | 2018-03-12 18:07 | MRI ---
MRI OF THE PELVIS WITHOUT AND WITH CONTRAST 03/12/18 HISTORY: Anorectal pain and rectal bleeding. TECHNIQUE: Multiplanar and multisequence MRI images were obtained in the pelvis without contrast. FINDINGS: Scattered diverticula are seen in the sigmoid colon. There is circumferential thickening of the wall of the rectum extending down to the anus. The wall measures approximately 1.2 cm in thickness. There is surrounding edema in the mesorectal fat. The thickened wall also is edematous demonstrating high T 2 signal. No enlarged pelvic lymph nodes are seen. No marrow signal abnormality is present. IMPRESSION: 1. There is thickening of the rectum extending down to the anus. This is nonspecific and could b e secondary to focal protocolitis. A malignancy cannot be entirely excluded. Correlate with recent bi opsies. 2. Diverticulosis. POS: [facility]
== END 2018-03-12 12:47 | disposition home or self-care (01) ==
LOC: MRI 12:46
PROVIDERS: ATTEND Internal Medicine Gastroenterology
DX: K62.5 Hemorrhage of anus and rectum (principal); K62.89 Other specified diseases of anus and rectum; K57.30 Diverticulosis of large intestine without perforation or abscess without bleeding
CPT/HCPCS: 72197; A9579

== ENCOUNTER 2018-05-02 09:19 | Inpatient (IN) | payer MEDICARE, OTHER ==
[2018-05-02] MEDS ORDERED: ISOVUE-370 76%-LOCM 1 ML ONE (09:37)
[2018-05-02 10:38] LABS: ALT (SGPT) 22 U/L (8-55); AST (SGOT) 29 U/L (5-34); Albumin 4.5 g/dL (3.4-4.8); Alkaline Phosphatase 75 U/L (40-150); Anion Gap 21 mmol/L (10-20); BUN (Urea Nitrogen) 25 mg/dL (9.8-20.1); Bilirubin, Total 0.5 mg/dL (0.2-1.2); Calc. Creatinine Clearance 0 mL/min (70-130); Carbon Dioxide 19 mmol/L (23-31); Chloride 107 mmol/L (98-107); Estimated GFR-MDRD 45; Globulin 3.1 g/dL (2.4-3.5); Glucose 126 mg/dL (83-110); Potassium 4.1 mmol/L (3.5-5.1); Protein, Total 7.6 g/dL (6.0-8.3); Sodium 143 mmol/L (136-145)
[2018-05-02] MEDS ORDERED: Ondansetron PF 4 MG/2 ML Vial ONE (10:55)
[2018-05-02] MEDS ORDERED: Morphine 4 MG/ML VIAL ONE (10:55)
--- NOTE | 2018-05-02 11:20 | CT ---
CT ABDOMEN AND PELVIS WITH IV CONTRAST: DATE: 05/02/2018. PROVIDED CLINICAL HISTORY: Abdominal pain. FINDINGS: Comparison is made with the study dated 03/10/2018. The visualized lung bases are free of significant opacity. The liver, spleen, pancreas, kidneys, and adrenal glands demonstrate a stable CT appearance. Multiple dilated loops of fluid-filled small bowel are present within the central mid abdomen, simila r to the prior examination. There is transition to more normal caliber bowel seen in the right lower quadrant. The colon is relatively decompressed but does contain fluid. There is no evidence for pn eumatosis or portal venous gas. There is no evidence for pneumoperitoneum or significant free intrap eritoneal fluid. Sigmoid colonic diverticulosis is again demonstrated. The thickening and inflammatory changes involv ing the rectum described on the prior examination are no longer evident. Scattered vascular calcifications are seen. The osseous structures demonstrate no concerning lytic or blastic lesions. Surgical clips are seen i n the pelvis. IMPRESSION: Findings compatible with small bowel obstruction as described above. POS: Joshua
[2018-05-02 11:35] LABS: #Lymphocytes 0.5 thou/uL (1.20-3.40); #Monocytes 0.2 thou/uL (0.11-0.59); #Neutrophils 10.8 thou/uL (1.40-6.50); %Basophils 0.2 % (0.0-1.0); %Eosinophils 0.1 % (0.0-10.0); %Lymphocytes 4.5 % (21.0-51.0); %Monocytes 1.9 % (0.0-10.0); %Neutrophils 93.3 % (42.0-75.0); Hemoglobin 12.9 g/dL (12.0-16.0); Mean Corpuscular HGB CONC 32.6 g/dL (32.0-36.0); Mean Corpuscular Hemoglobin 30.4 pg (27.0-31.0); Mean Corpuscular Volume 93.4 fL (78.0-98.0); Mean Platelet Volume 7.7 fL (7.4-10.4); Platelet Count 351 thou/uL (130-400); RBC Distribution Width 13.3 % (11.5-14.5); Red Blood Cell (RBC) Count 4.25 mill/uL (4.20-5.40); White Blood Cell (WBC) Count 11.6 thou/uL (4.8-10.8)
[2018-05-02] MEDS ORDERED: Fentanyl 100 MCG/2 ML VIAL ONE (13:01)
[2018-05-02] MEDS ORDERED: Benzocaine 20% Spray 60 ML CAN ONE (13:08)
[2018-05-02] MEDS ORDERED: Morphine 4 MG/ML VIAL SLOW IVP PRN ×2 (13:14→13:56)
[2018-05-02] MEDS ORDERED: hydrALAZINE 20 MG/ML VIAL SLOW IVP PRN (13:14)
[2018-05-02] MEDS ORDERED: Acetaminophen 1,000 MG in Premix Bag 1 BAG IVPB PRN (13:16)
--- NOTE | 2018-05-02 13:53 | RAD ---
ABDOMEN 1 VIEW: HISTORY: Abdominal pain and diarrhea, evaluate NG tube position. FINDINGS: Exam includes the upper abdomen and lower chest. An NG tube is in place with the tip in the stomach, the side hole is just at or slightly beyond the region of the GE junction. No significant acute pro cess in the chest. There is gas in the small bowel and colon. IMPRESSION: Nasogastric tube with the tip in the stomach, side hole is near the level of the expected gastroesoph ageal junction region. Surgical clips at the gastroesophageal junction. Moderate gas in large and s mall bowel. POS: [facility]
[2018-05-02 14:14] LABS: Bilirubin Negative (Negative); Blood, Urine Large (Negative); Clarity CLEAR (Clear); Glucose, Urine (Dipstick) Negative (Negative); Leukocyte Moderate (Negative); Nitrite Negative (Negative); Protein, Urine (Dipstick) Negative (Neg-Trace); Specific Gravity, Urine 1.029 (1.002-1.036); Urobilinogen 0.2 mg/dL (0.2-1.0); pH, Urine 6.5 (5.0-9.0)
[2018-05-02 14:16] LABS: Bacteria/HPF 2+ HPF (None Seen); Hyaline Casts/LPF 0-3 HYALINE CAST LPF (0-3 Hyaline); Pathc Cast-AUWi Flag 0.43 (0-2.49); RBC/HPF 21-50 HPF (0-3); Squamous Epithelial 0-3 HPF (0-3)
[2018-05-02 14:30] LABS: Crystals/HPF 1+ CA OXALATE HPF (Negative)
--- NOTE | 2018-05-02 15:59 | HP ---
HISTORY OF PRESENT ILLNESS: Dayanara Alexander is a 77-year-old female, presents to the emergency room with acute onset of initially loose bowels, abdominal pain, distention, bloating. She has had a previous Jett fundoplication and cannot experience emesis. She was just discharged from the hospital in March of 2018 with a similar problem. She had a small-bowel follow-through that traversed to the colon within an hour and a half, but there remained some dilated loops of small bowel. In the interval, the patient is doing well. She presented last night with symptoms and presents to the emergency room today. CAT scan revealed changes consistent with bowel obstruction with markedly dilated stomach and bowel loops. Her basic metabolic profile is normal except for mild acute kidney injury. Creatinine 1.16, BUN 25, sodium 143, and potassium 4.1. White count is 11 and hemoglobin 12.9. NG tube has not yet been placed. The patient had a cardiac stress test last year that was normal, normal EF, no reversible ischemia. She had been seen by Dr. Graf in the past. ALLERGIES: NONE. SOCIAL HISTORY: Tobacco, none. Alcohol, none. MEDICATIONS: 1. Omeprazole daily. 2. Colestipol. 3. Vitamin D3. 4. Amlodipine. 5. Furosemide. 6. Protonix. 7. Levothyroxine 75 mcg a day. 8. Furosemide 80 mg a day. 9. Amlodipine 5 mg a day. 10. Protonix 40 mg a day. 11. Multivitamins daily. 12. Losartan 100 mg daily. 13. Trazodone 100 mg at bedtime. 14. Xarelto 20 mg at bedtime. 15. Pravachol 40 mg at bedtime. PAST SURGICAL HISTORY: In 1998, I performed laparoscopic adhesiolysis to gain access to perform a laparoscopic fundoplication, hiatal hernia repair. In December 1998, she had a laparotomy, evacuation of intraabdominal abscess, resection, debridement of old mass, and adhesiolysis to gain access to the above-described procedures. In 2004, Dr. Gonzalez performed upper endoscopy, noted intact fundoplication, normal endoscopy. In 2010, the patient had incisional hernia repair, laparoscopic adhesiolysis, reduction of incarcerated incisional hernia and repair with a 10 x 15 cm Proceed mesh with transabdominal fixation, nonabsorbable sutures. Open cholecystectomy in 1980, upper midline incision. She has had a total abdominal hysterectomy. bilateral salpingo-oophorectomy, appendectomy with a cholecystectomy. She has had 2 pacemakers in the past removed because of wound site problems and not replaced. Echocardiogram is recently normal, cardiac catheterization normal in 2008, followed by Dr. Graf. Colonoscopy in 2012, noting normal findings on biopsy. PAST MEDICAL HISTORY: Mild reflux improved since her anti-reflux surgery, hypertension, and hypothyroidism. REVIEW OF SYSTEMS: Ten-point noncontributory. PHYSICAL EXAMINATION: VITAL SIGNS: Heart rate 80, blood pressure 130/75. HEAD, EARS, EYES, NOSE, AND THROAT: Unremarkable. LUNGS: Clear to auscultation. CARDIAC: Regular rate and rhythm without murmur or gallop. ABDOMEN: Soft, distended, tympanitic, slightly tender in central abdomen. EXTREMITIES: Unremarkable. LABORATORY DATA: As noted above. ASSESSMENT AND PLAN: History, exam, radiological findings consistent with bowel obstruction. We will plan placement of NG tube. Considering her recent recurrence, I will decompress her, reassess her tomorrow, consider laparoscopy versus small-bowel follow-through pending her clinical course and pending further discussion. ADDENDUM: The patient took her Xarelto, Sunday night, 05/01/2018. Job ID: [id number]
[2018-05-02 16:06] VITALS: BMI 26.9
[2018-05-02] MEDS: Lactated Ringer's 1,000 ML IV SCH ×2 (16:18→21:45)
[2018-05-02] MEDS: Ondansetron PF 4 MG/2 ML Vial IVP PRN (19:40)
[2018-05-03] MEDS: Ondansetron PF 4 MG/2 ML Vial IVP PRN (02:17)
[2018-05-03] MEDS: Lactated Ringer's 1,000 ML IV SCH (06:14)
[2018-05-03 06:58] LABS: #Lymphocytes 0.5 thou/uL (1.20-3.40); #Monocytes 0.2 thou/uL (0.11-0.59); #Neutrophils 2.3 thou/uL (1.40-6.50); %Basophils 0.7 % (0.0-1.0); %Eosinophils 0.1 % (0.0-10.0); %Lymphocytes 15.5 % (21.0-51.0); %Neutrophils 75.7 % (42.0-75.0); Hemoglobin 10.3 g/dL (12.0-16.0); Mean Corpuscular Hemoglobin 29.8 pg (27.0-31.0); Mean Platelet Volume 7.6 fL (7.4-10.4); Platelet Count 278 thou/uL (130-400); RBC Distribution Width 13.2 % (11.5-14.5); Red Blood Cell (RBC) Count 3.46 mill/uL (4.20-5.40)
[2018-05-03 07:17] LABS: ALT (SGPT) 66 U/L (8-55); AST (SGOT) 68 U/L (5-34); Albumin 3.5 g/dL (3.4-4.8); Alkaline Phosphatase 118 U/L (40-150); Anion Gap 15 mmol/L (10-20); BUN (Urea Nitrogen) 16 mg/dL (9.8-20.1); Bilirubin, Total 0.3 mg/dL (0.2-1.2); Calc. Creatinine Clearance 55 mL/min (70-130); Calcium 8.5 mg/dL (7.8-10.44); Carbon Dioxide 26 mmol/L (23-31); Chloride 107 mmol/L (98-107); Estimated GFR-MDRD 60; Globulin 2.2 g/dL (2.4-3.5); Glucose 113 mg/dL (83-110); Potassium 3.1 mmol/L (3.5-5.1); Protein, Total 5.7 g/dL (6.0-8.3); Sodium 145 mmol/L (136-145)
--- NOTE | 2018-05-03 08:51 | PRG ---
DATE OF SERVICE: 05/03/2018 SUBJECTIVE: Dayanara Alexander is doing well. OBJECTIVE: VITAL SIGNS: Temperature 100 degrees earlier, 99.2 degrees at this time, 75 heart rate, 100/62 blood pressure. Gastric output since placed over NG tube last night is 700 mL. LUNGS: Clear to auscultation. CARDIAC: Regular rate and rhythm. No murmur or gallop. ABDOMEN: Soft, tympanitic, mildly distended. EXTREMITIES: Unremarkable. LABORATORY DATA: This morning, her white count is 3, hemoglobin 10.3. Sodium 145, potassium 3.1, creatinine 0.9, GFR 60, BUN 16. She has not passed any flatus or stool since admission. Morning x-rays are pending. ASSESSMENT AND PLAN: Recurrent small bowel obstruction. She has had multiple prior operations. We will continue NG tube suction. I have discussed with her the fact that the small bowel follow-through in March when she presented with a similar episode, although did make it to the colon within 1.5 hours, demonstrate persistent distended small bowel loops. Considering her recurrent problems so soon after March admission, we will plan laparoscopic, probable open adhesiolysis. She understands the risks and benefits, wishes to proceed with surgery due to the recurrent bowel obstructions. She understands the risks of infection, bleeding, reoperation, risk of small-bowel resection, risk of anastomotic leakage, infection, bleeding, wound dehiscence, etc., and consents. We will plan perioperative tap block. Job ID: [id number]
[2018-05-03] MEDS ORDERED: Pantoprazole 40 MG VIAL IVP SCH (09:00)
[2018-05-03] MEDS ORDERED: Midazolam HCl 2 mg/2 ml Vial ONE (09:53)
[2018-05-03] MEDS ORDERED: Fentanyl 100 MCG/2 ML VIAL ONE ×2 (09:53→11:10)
--- NOTE | 2018-05-03 10:23 | RAD ---
ACUTE ABDOMEN SERIES WITH FRONTAL VIEW CHEST AND TWO VIEW ABDOMEN: COMPARISON: Radiograph from 05/02/2018. FINDINGS: No lobar consolidation. Enteric catheter traverses to the midline of the central abdomen. Bowel gas pattern is nonspecific. There are osseous degenerative changes. IMPRESSION: 1. Enteric catheter traversing to the midline in the central abdomen. This has been advanced since the recent comparison exam. 2. No focal consolidation or free air. 3. Improved bowel gas pattern is noted. POS: [facility]
[2018-05-03] MEDS ORDERED: Ketorolac Tromethamine 30 MG/ML VIAL ONE (10:25)
[2018-05-03] MEDS ORDERED: Acetaminophen 1,000 MG in Premix Bag 1 BAG IVPB SCH (10:45)
[2018-05-03] MEDS ORDERED: Meropenem 2 GM, Admixture Fee 1 EACH in Sodium Chloride 0.9% 100 ML IVPB SCH (10:45)
[2018-05-03] MEDS ORDERED: Ketorolac Tromethamine 30 MG/ML VIAL IVP SCH (10:45)
[2018-05-03] MEDS ORDERED: Bupivacaine HCl 0.5%/Epinephrine 1:200,000/PF 30 ml Vial ONE ×2 (10:58→13:30)
[2018-05-03] MEDS ORDERED: Ondansetron ODT 8 MG TAB SL PRN (13:28)
[2018-05-03] MEDS ORDERED: Acetaminophen 500 MG TAB PO PRN (13:28)
[2018-05-03] MEDS ORDERED: Acetaminophen 1,000 MG in Premix Bag 1 BAG IVPB PRN (13:28)
[2018-05-03] MEDS ORDERED: Ondansetron ODT 8 MG TAB PO PRN (13:28)
[2018-05-03] MEDS ORDERED: Ondansetron PF 4 MG/2 ML Vial ONE (14:22)
[2018-05-03] MEDS ORDERED: Succinylcholine Chloride 20 MG/ML 10 ml SYRINGE FS ONE (14:22)
[2018-05-03] MEDS ORDERED: Rocuronium Bromide 10 MG/ML (10ML VIAL) ONE (14:22)
[2018-05-03] MEDS ORDERED: Glycopyrrolate 0.2 MG/ML 5 ML SYRINGE ONE (14:22)
[2018-05-03] MEDS ORDERED: PROPOFOL 200 MG/20 ML VIAL ONE (14:22)
[2018-05-03] MEDS ORDERED: Dexamethasone 20 MG/5 ML VIAL ONE (14:22)
[2018-05-03] MEDS ORDERED: PHENYLEPHRINE-NS 100 MCG/ML 10 ML SYRINGE ONE (14:22)
[2018-05-03] MEDS: Potassium Chloride 20 MEQ in Lactated Ringer's 1,000 ML IV SCH ×2 (16:46→23:53)
[2018-05-03] MEDS: Amlodipine 5 MG TAB PO SCH (20:48)
[2018-05-03] MEDS: traZODone HCl 50 MG TAB PO SCH (20:49)
[2018-05-03] MEDS: Enoxaparin Sodium 40 MG/0.4 ML SYRINGE SC SCH (20:49)
[2018-05-04] MEDS: Levothyroxine Sodium 75 MCG TAB PO SCH (05:24)
[2018-05-04] MEDS: Potassium Chloride 20 MEQ in Lactated Ringer's 1,000 ML IV SCH ×3 (07:14→17:11)
[2018-05-04 07:45] LABS: #Lymphocytes 1.1 thou/uL (1.20-3.40); #Monocytes 0.6 thou/uL (0.11-0.59); #Neutrophils 5.9 thou/uL (1.40-6.50); %Basophils 0.2 % (0.0-1.0); %Eosinophils 0.1 % (0.0-10.0); %Lymphocytes 14.1 % (21.0-51.0); %Monocytes 8.3 % (0.0-10.0); %Neutrophils 77.3 % (42.0-75.0); Hemoglobin 10.4 g/dL (12.0-16.0); Mean Corpuscular HGB CONC 31.8 g/dL (32.0-36.0); Mean Corpuscular Hemoglobin 29.9 pg (27.0-31.0); Mean Corpuscular Volume 93.8 fL (78.0-98.0); Mean Platelet Volume 7.8 fL (7.4-10.4); Platelet Count 275 thou/uL (130-400); RBC Distribution Width 13.2 % (11.5-14.5); Red Blood Cell (RBC) Count 3.49 mill/uL (4.20-5.40); White Blood Cell (WBC) Count 7.6 thou/uL (4.8-10.8)
[2018-05-04] MEDS ORDERED: Ibuprofen 600 MG TAB PO PRN (08:00)
[2018-05-04] MEDS ORDERED: traMADol HCl 50 MG TAB PO PRN (08:00)
[2018-05-04 08:13] LABS: Anion Gap 12 mmol/L (10-20); BUN (Urea Nitrogen) 18 mg/dL (9.8-20.1); Calc. Creatinine Clearance 57 mL/min (70-130); Calcium 8.9 mg/dL (7.8-10.44); Carbon Dioxide 26 mmol/L (23-31); Chloride 108 mmol/L (98-107); Estimated GFR-MDRD 63; Glucose 90 mg/dL (83-110); Potassium 3.8 mmol/L (3.5-5.1); Sodium 142 mmol/L (136-145)
[2018-05-04] MEDS: Multivit, Therapeutic 1 TAB PO SCH (08:35)
[2018-05-04] MEDS: Losartan 25 MG TAB PO SCH (08:35)
[2018-05-04] MEDS: Amlodipine 5 MG TAB PO SCH ×2 (08:35→20:36)
[2018-05-04] MEDS ORDERED: OMEPRAZOLE PO SCH (09:00)
[2018-05-04] MEDS ORDERED: SODIUM BICARBONATE PO SCH (09:00)
--- NOTE | 2018-05-04 10:04 | PRG ---
DATE OF SERVICE: 05/04/2018 SUBJECTIVE: The patient is postoperative day one from laparoscopic lysis of adhesions for recurrent small-bowel obstruction. She states that she has mild discomfort. She has not passed any flatus. She does feel some mild nausea. She cannot vomit due to a previous Jett fundoplication. OBJECTIVE: VITAL SIGNS: Her temperature is 99.4, pulse 74, blood pressure 144/79. GENERAL: She is awake, alert, in no apparent distress. ABDOMEN: Somewhat slightly distended, but soft. No significant tenderness. The incisions are healing well. ASSESSMENT: Postoperative ileus. PLAN: Continue IV fluids. Minimal p.o. fluids until she is better. Job ID: [id number]
[2018-05-04] MEDS: Ondansetron ODT 4 MG TAB PO PRN ×2 (11:46→17:46)
[2018-05-04] MEDS: Ketorolac Tromethamine 30 MG/ML VIAL IVP PRN ×2 (11:47→17:48)
[2018-05-04] MEDS: traMADol HCl 50 MG TAB PO PRN (16:19)
[2018-05-04] MEDS ORDERED: Morphine 4 MG/ML VIAL SLOW IVP PRN (18:06)
[2018-05-04] MEDS: traZODone HCl 50 MG TAB PO SCH (20:35)
[2018-05-04] MEDS: Enoxaparin Sodium 40 MG/0.4 ML SYRINGE SC SCH (20:36)
[2018-05-05] MEDS: Potassium Chloride 20 MEQ in Lactated Ringer's 1,000 ML IV SCH ×3 (01:20→09:23)
[2018-05-05] MEDS: Levothyroxine Sodium 75 MCG TAB PO SCH (06:16)
[2018-05-05] MEDS: Amlodipine 5 MG TAB PO SCH ×2 (08:32→21:42)
[2018-05-05] MEDS: Losartan 25 MG TAB PO SCH (08:32)
[2018-05-05] MEDS: Multivit, Therapeutic 1 TAB PO SCH (08:33)
--- NOTE | 2018-05-05 08:58 | PRG ---
DATE OF SERVICE: 05/05/2018 SUBJECTIVE: The patient reports having had a good night. She is feeling better. She is passing flatus. She is tolerating clear liquids. No nausea or vomiting. OBJECTIVE: VITAL SIGNS: Temperature 99.6, pulse 76, blood pressure 123/72. GENERAL: She looks better. She is up in a chair. LUNGS: Clear. ABDOMEN: Soft and nondistended. Incisions are healing well. ASSESSMENT: Status post laparoscopic lysis of adhesions for small bowel obstruction, doing well. PLAN: Advance diet. Hep-Lock IV. Continue ambulation. Home soon. Job ID: [id number]
[2018-05-05] MEDS: Morphine 4 MG/ML VIAL SLOW IVP PRN ×2 (11:53→21:50)
[2018-05-05] MEDS: traZODone HCl 50 MG TAB PO SCH (21:43)
[2018-05-05] MEDS: Enoxaparin Sodium 40 MG/0.4 ML SYRINGE SC SCH (21:43)
[2018-05-06] MEDS: Potassium Chloride 20 MEQ in Lactated Ringer's 1,000 ML IV SCH (05:49)
[2018-05-06] MEDS: Levothyroxine Sodium 75 MCG TAB PO SCH (05:50)
[2018-05-06] MEDS: Amlodipine 5 MG TAB PO SCH (09:22)
[2018-05-06] MEDS: Multivit, Therapeutic 1 TAB PO SCH (09:23)
[2018-05-06] MEDS: Losartan 25 MG TAB PO SCH (09:23)
--- NOTE | 2018-05-06 11:14 | OP ---
DATE OF PROCEDURE: 05/03/2018 PREOPERATIVE DIAGNOSES: Multiple prior operations, recurrent bowel obstruction, secondary adhesions from prior surgery. PROCEDURE PERFORMED: Laparoscopic adhesiolysis, 1 hour 10 minutes. ANESTHESIA: General, TAP block, local 0.5% Marcaine with epinephrine 10 mL. DESCRIPTION OF PROCEDURE: The patient was taken to the operating room, where under general anesthesia, Fabian catheter was placed at the beginning of the procedure and removed at the end. NG tube had been placed the day prior. Abdomen was prepared with ChloraPrep and draped in routine fashion. Left lateral subcostal incision made. Pneumoperitoneum to 15 mmHg obtained with a Veress needle, replaced with a 5 port, laparoscope inserted. There were no adhesions to the anterior abdominal wall. Left lateral abdominal wall incision made, mid lateral abdomen, left, and 5 mm port placed and left lower quadrant incision was made, and another 5 mm port placed. More of midline lower abdominal incision made and a 5 port placed. These were done under laparoscopic visualization. I then was able to visualize the cecum, identified the terminal ileum, and then evaluated the small bowel beginning at the terminal ileum toward the ligament of Treitz. I serially observed the bowel. The terminal ileum was markedly decompressed, proximal small bowel was slightly dilated. As I progressed proximally, adhesions were taken down with sharp dissection and at times, LigaSure was used. Mostly blunt and sharp dissection were used. The distal small bowel was mostly decompressed, proximal small bowel was mildly dilated. I was able to evaluate the entire small bowel from the terminal ileum to the ligament of Treitz and then inspected the small bowel from the ligament of Treitz to the terminal ileum for integrity. There was no evidence of leakage or injury. Approximately 1 hour 15 minutes adhesiolysis had been undertaken. Good hemostasis noted. Irrigant and pneumoperitoneum evacuated. All instruments were removed and all skin incisions were approximated with subdermal 4-0 Monocryl. NG tube and Fabian catheter removed. The patient tolerated the procedure well. Job ID: [id number]
--- NOTE | 2018-05-06 11:27 | PRG ---
DATE OF SERVICE: 05/06/2018 SUBJECTIVE: Ms. Alexander is doing well today. She is tolerating her diet. I have disconnected her IV fluids. She has had passed flatus, had a small bowel movement. OBJECTIVE: LUNGS: Clear to auscultation. CARDIAC: Regular rate and rhythm. No murmur or gallop. ABDOMEN: Soft. Bowel sounds present. Her laparoscopic wound looks good. ASSESSMENT AND PLAN: Resolved bowel obstruction, discharge home today. Follow up in my office in 2 to 3 weeks. Diet and activity as tolerated. Job ID: [id number]
--- NOTE | 2018-05-06 11:43 | DIS ---
DATE OF ADMISSION: 05/02/2018 DATE OF DISCHARGE: 05/06/2018 DISCHARGE DIAGNOSES: 1. Bowel obstruction, secondary adhesions. 2. Multiple operations in the past including Jett fundoplication, which she cannot experience emesis. HISTORY: The patient admitted for partial bowel obstruction, undergoing a small bowel follow-through in March. After the final films and small-bowel follow-through, revealed some persistently dilated small bowel loops, however, she is tolerating her diet, went home and has been doing well until presenting this hospitalization noting acute onset of abdominal bloating, nausea, and obstipation. The patient underwent a CAT scan suggesting recurrent bowel obstruction. She had an NG tube placed, underwent laparoscopic adhesiolysis and postoperative recovered to resume bowel function, being discharged home at this time. Resume her home medications. Colestipol, vitamin D3, amlodipine, furosemide, trazodone, Synthroid, multivitamins, Protonix, Xarelto, Pravachol, Zegerid, Citrucel, tramadol, ibuprofen, and Tylenol. Diet and activity as tolerated. Follow up in my office in 2 to 3 weeks. Job ID: [id number]
[2018-05-06] MEDS: traMADol HCl 50 MG TAB PO PRN (12:44)
[2018-05-06 12:46] VITALS: BP 129/72; TEMP 98.5
[2018-05-06] MEDS ORDERED: Non-Formulary Item 1 EACH (Rivaroxaban [Xarelto] 20 MG) PO SCH (21:00)
[2018-05-06] MEDS ORDERED: Pravastatin Sodium 40 MG TAB PO SCH (21:00)
[2018-05-07] MEDS ORDERED: Furosemide 40 MG TAB PO SCH (09:00)
== END 2018-05-06 13:10 | disposition home or self-care (01) | DRG 336 ==
LOC: ERS 09:19 → SURG A 15:10
PROVIDERS: ADMIT Specialist; ATTEND Specialist
PROC: 0DNB4ZZ Release Ileum, Percutaneous Endoscopic Approach (ICD-10-PCS; principal; 2018-05-02)
DX: K52.9 Noninfective gastroenteritis and colitis, unspecified (principal); K56.609 Unspecified intestinal obstruction, unspecified as to partial versus complete obstruction; K62.3 Rectal prolapse; I10 Essential (primary) hypertension; E03.9 Hypothyroidism, unspecified
CPT/HCPCS: 36415; 74018; 74022; 74177; 80048; 80053; 81003; 81015; 82274; 83605; 83930; 84484; 85025; 87045; 87046; 87177; 87324; 87449; 87899; 93005; 94640; 96361; 96374; 96375; C9113; J0131; J0670; J1650; J1885; J2185; J2250; J2270; J2405; J3010; J3480; J7050; J7120; J7620; Q0162; Q9966

== ENCOUNTER 2018-07-04 18:49 | Observation (INO) | payer MEDICARE, OTHER ==
[2018-07-04 19:15] LABS: #Basophils 0.1 thou/uL (0.0-0.2); #Eosinphils 0.1 thou/uL (0.0-0.7); #Lymphocytes 1.7 thou/uL (1.20-3.40); #Monocytes 0.8 thou/uL (0.11-0.59); #Neutrophils 5.9 thou/uL (1.40-6.50); %Basophils 1.1 % (0.0-1.0); %Eosinophils 0.8 % (0.0-10.0); %Lymphocytes 19.7 % (21.0-51.0); %Monocytes 9.5 % (0.0-10.0); %Neutrophils 68.9 % (42.0-75.0); Hemoglobin 13.7 g/dL (12.0-16.0); Mean Corpuscular HGB CONC 33.2 g/dL (32.0-36.0); Mean Corpuscular Hemoglobin 30.5 pg (27.0-31.0); Mean Corpuscular Volume 91.7 fL (78.0-98.0); Mean Platelet Volume 7.2 fL (7.4-10.4); Platelet Count 417 thou/uL (130-400); Red Blood Cell (RBC) Count 4.51 mill/uL (4.20-5.40); White Blood Cell (WBC) Count 8.6 thou/uL (4.8-10.8)
--- NOTE | 2018-07-04 19:25 | RAD ---
CHEST ONE VIEW 07/04/18 COMPARISON: 03/05/18 HISTORY: Patient not feeling well. FINDINGS: Atherosclerosis of the aorta. Normal cardiac silhouette. The lungs and pleural spaces are clear. No p neumothorax or osseous abnormalities. IMPRESSION: No acute cardiopulmonary process. POS: [facility]
[2018-07-04] MEDS ORDERED: Lorazepam 1 MG TAB ONE (19:26)
[2018-07-04 19:47] LABS: ALT (SGPT) 17 U/L (8-55); AST (SGOT) 27 U/L (5-34); Albumin 4.8 g/dL (3.4-4.8); Alkaline Phosphatase 86 U/L (40-150); Anion Gap 15 mmol/L (10-20); BUN (Urea Nitrogen) 24 mg/dL (9.8-20.1); Bilirubin, Total 0.5 mg/dL (0.2-1.2); Calc. Creatinine Clearance 0 mL/min (70-130); Calcium 10.4 mg/dL (7.8-10.44); Carbon Dioxide 29 mmol/L (23-31); Chloride 101 mmol/L (98-107); Estimated GFR-MDRD 34; Globulin 3.1 g/dL (2.4-3.5); Glucose 121 mg/dL (83-110); Lipase 31 U/L (8-78); Potassium 3.4 mmol/L (3.5-5.1); Protein, Total 7.9 g/dL (6.0-8.3); Sodium 142 mmol/L (136-145)
[2018-07-04 20:58] LABS: Bilirubin Small (Negative); Blood, Urine Negative (Negative); Clarity CLOUDY (Clear); Glucose, Urine (Dipstick) Negative (Negative); Leukocyte Large (Negative); Nitrite Negative (Negative); Protein, Urine (Dipstick) Trace mg/dL (Neg-Trace); Specific Gravity, Urine 1.021 (1.002-1.036); Urobilinogen 0.2 mg/dL (0.2-1.0)
[2018-07-04 20:59] LABS: Bacteria/HPF 2+ HPF (None Seen); WBC/HPF 21-50 HPF (0-3)
[2018-07-04 21:08] LABS: RBC/HPF 0-3 HPF (0-3)
[2018-07-04 21:09] LABS: Crystals/HPF 2+ CA OXALATE HPF (Negative); Hyaline Casts/LPF 4-6 HYALINE CAST LPF (0-3 Hyaline); Squamous Epithelial 0-3 HPF (0-3)
[2018-07-04 21:10] LABS: Other Microscopic Description Less than 2 mL rec'd
[2018-07-04] MEDS ORDERED: cefTRIAXone\\ROCEPHIN 2 GM VIAL ONE (22:26)
[2018-07-04 22:35] LABS: Troponin I Less than 0.010 ng/mL (< 0.028)
[2018-07-05] MEDS ORDERED: Temazepam 15 MG CAP PO SCH ×2 (01:45→21:00)
[2018-07-05] MEDS ORDERED: Ondansetron ODT 4 MG TAB SL PRN (05:01)
[2018-07-05] MEDS ORDERED: Acetaminophen 325 MG TAB PO PRN (05:01)
[2018-07-05] MEDS ORDERED: Ondansetron PF 4 MG/2 ML Vial IVP PRN (05:01)
[2018-07-05 05:30] VITALS: BMI 25.8
[2018-07-05] MEDS: Sodium Chloride 0.9% 1,000 ML IV SCH ×2 (05:39→08:43)
[2018-07-05] MEDS ORDERED: Levothyroxine Sodium 75 MCG TAB PO SCH (08:30)
[2018-07-05] MEDS ORDERED: Multivit, Therapeutic 1 TAB PO SCH (09:00)
[2018-07-05] MEDS ORDERED: Furosemide 40 MG TAB PO SCH (09:00)
[2018-07-05] MEDS ORDERED: Amlodipine 5 MG TAB PO SCH (09:00)
[2018-07-05] MEDS ORDERED: Losartan 25 MG TAB PO SCH (09:00)
--- NOTE | 2018-07-05 11:12 | HP ---
CHIEF COMPLAINT: Tiredness and fatigue, and feeling of something flipping in her chest. HISTORY OF PRESENT ILLNESS: The patient is an 78-year-old white female, who came to the emergency room for evaluation of her tiredness and fatigue and feeling of some flipping and flopping sensation in her chest. According to her, she has this tiredness and fatigue for many months, more even up to a year. She is quite active. She lives alone. She does everything at home. According to her, she had several evaluations of her sensation of flipping and flopping in the chest by Dr. Graf, patient intake coordinator, and there was not any positive finding. She has irritable bowel syndrome and she has diarrhea quite often. Dr. Gonzalez, her harpooner, is treating her with colestipol. She admits that she is under a lot of stress. She worries about her daughters and she is not able to sleep. Her surrogate decision maker is her daughter, Dai Wan. She was in the hospital last year. She had stress test done which was negative, but she had some run of nonsustained ventricular tachycardia. PAST MEDICAL HISTORY: 1. Gastroesophageal reflux. 2. Atrial fibrillation. 3. Macular degeneration. 4. Irritable bowel syndrome. 5. Hypothyroidism. PAST SURGICAL HISTORY: 1. Cardiac ablation x3. 2. Two pacemakers placed by Dr. Graf and removed secondary to significant reaction. 3. Recent abdominal surgery for adhesions . 4. Multiple operations in the past including Jett fundoplication. FAMILY HISTORY: Nothing of significance is known. SOCIAL HISTORY: She does not have any history of cigarette smoking, alcohol, drinking, or illicit drug use. PRIMARY CARE PHYSICIAN: Dr. Lianne Giraldo in [place]. CODE STATUS: Full. SURROGATE DECISION MAKER: Daughter, Dai Wan. REVIEW OF SYSTEMS: Positive for chronic urinary incontinence and chronic diarrhea secondary to irritable bowel syndrome, fatigue, and insomnia. Otherwise, 10-system review was unremarkable. PHYSICAL EXAMINATION: VITAL SIGNS: Blood pressure is 115/69, pulse is 69, temperature is 98.6, respirations 18, O2 saturation is 94% on room air. HEENT: Head is atraumatic and normocephalic. Eyes are PERRLA. Sclerae nonicteric. Oral mucosa is somewhat dry. NECK: Supple. LUNGS: Clear. HEART: S1 and S2 normal. No S3. No S4. ABDOMEN: Soft and nontender. Bowel sounds are present. No organomegaly. EXTREMITIES: 1+ nonpitting peripheral edema with varicose veins. NEUROLOGIC: She is alert and oriented x4. There is no any motor or sensory deficits present. Cranial nerves are intact. LABORATORY DATA: Showed normal CBC except for platelet count is 417,000. Sodium of 142, potassium 3.4, chloride 101, CO2 of 29, BUN 24, creatinine 1.46, glucose 121. BNP 461.8. The rest of chemistry within normal limits. Urinalysis showed trace of ketones, small amount of bilirubin, large amount of leukocyte esterases, 21-50 wbc's, 2+ calcium oxalate, 2+ bacteria, and 4 to 6 hyaline casts. IMPRESSION: 1. Fatigue of unclear etiology, this is chronic. Check her inflammatory markers. 2. Urinary tract infection most likely. 3. Flipping and flopping sensation in her chest. Had two EKGs done, the first one was done in the emergency room and it showed normal sinus rhythm with some sinus arrhythmia and some left ventricular hypertrophy and second EKG was done this morning when she felt above-mentioned sensation, which showed sinus rhythm with premature atrial complexes. QT interval was prolonged at 484 and corrected was at 522. 4. Renal insufficiency, which is chronic and it is probably exaggerated by her high dose of Lasix use at home. She is on 80 mg once a day for her peripheral edema. 5. History of atrial fibrillation. 6. Macular degeneration. 7. Irritable bowel syndrome. 8. Gastroesophageal reflux disease. 9. Hypokalemia. PLAN: Admission for observation. Condition is fair. Activity, bedrest and bathroom privileges. IV Hep-Lock. We are going to stop her IV fluids. She received almost two bags of IV fluids since the time of admission in the emergency room. We will decrease her dose of Lasix to 40 mg once a day from 80 mg once a day. We will start her on Zoloft 50 mg once a day for her stress. We will continue her Rocephin, she was started on in the emergency room. I am going to give her one dose of potassium chloride for high potassium at 3.4. We will continue her home medications except for one change on Lasix dose. The patient had multiple evaluation of her feeling in Dr. Graf' office, so I am not going to repeat the testing again. She even had monitors placed on her, which did not show much according to her. We will continue her Protonix, she is taking at home. We will start her on walking program and she should be able to go home in the next 24 to 48 hours. Job ID: [id number]
[2018-07-05 11:34] VITALS: BP 128/73; TEMP 97.7
--- NOTE | 2018-07-05 14:34 | EKG ---
Test Reason : ? Blood Pressure : / mmHG Vent. Rate : 070 BPM Atrial Rate : 070 BPM P-R Int : 184 ms QRS Dur : 092 ms QT Int : 484 ms P-R-T Axes : 082 022 123 degrees QTc Int : 522 ms Sinus rhythm with Premature atrial complexes T wave abnormality, consider anterior ischemia Prolonged QT Abnormal ECG When compared with ECG of 04-JUL-2018 19:00, (Unconfirmed) Premature atrial complexes are now Present ST now depressed in Anterior leads Nonspecific T wave abnormality now evident in Inferior leads T wave inversion now evident in Anterior leads Confirmed by ANAYA ARGUETA, DR. Alves ([id number]) on 07/05/2018 2:34:14 PM Referred By: RENETTA Confirmed By:DR. Long JULIEN MD
[2018-07-05] MEDS ORDERED: Potassium Chloride 20 MEQ TAB PO SCH (17:00)
[2018-07-05] MEDS ORDERED: Atorvastatin Calcium 10 MG TAB PO SCH (21:00)
[2018-07-05] MEDS ORDERED: Rivaroxaban 10 MG TAB PO SCH (21:00)
[2018-07-05] MEDS ORDERED: cefTRIAXone\\ROCEPHIN 1 GM in Sodium Chloride 0.9% 100 ML IVPB SCH (21:00)
--- NOTE | 2018-07-06 02:43 | DIS ---
DATE OF ADMISSION: 07/05/2018 DATE OF DISCHARGE: 07/05/2018 FINAL DIAGNOSES: 1. Fatigue of unclear etiology, chronic in nature. 2. Urinary tract infection, most likely. 3. Flipping and flopping sensation in the chest, chronic, recurrent. 4. Renal insufficiency, chronic, probably exacerbated by Lasix use at home. 5. History of atrial fibrillation. 6. Macular degeneration. 7. Irritable bowel syndrome. 8. Gastroesophageal reflux disease. 9. Hypokalemia, supplemented. HOSPITAL COURSE: The patient is an 78-year-old female, who came to the emergency room for evaluation of her tiredness and fatigue and feeling something of flip flopping sensation in her chest. According to her, she and her chest sensation was evaluated by her foot caster Dr. Graf several times. In the emergency room, the patient was evaluated and her CBC was normal. Her potassium was 3.4, chloride 101, CO2 of 29, sodium of 142, BUN 24, creatinine 1.46, and glucose was 121. BNP 461.8. Urinalysis showed trace of ketones, small amount of bilirubin, large amount of leukocyte esterases, 21 to 50 wbc's, 2+ calcium oxalate, 2+ bacteria, and 4 to 6 hyaline casts. The patient was seen by emergency room physician. Also, she had two EKGs done, which showed a normal sinus rhythm with some left ventricular hypertrophy and some premature atrial complexes. Her QT interval was prolonged at 484 and corrected was at 522. Renal insufficiency was most likely related to her dose of Lasix which is 80 mg used at home, so plan was to continue her Rocephin. She was started on Rocephin in the emergency room for her possible cystitis and slightly low on the level. She is doing quite well. She does not have much complaints to offer anymore. She would like to go home because her daughter who was hospitalized is discharged today home. She wants to help her. She feels like all those complaints she had were chronic and she came to the emergency room because she was kind of anxious and she wants to go home, so she is discharged home. Blood pressure is 128/73, pulse is 74, temperature is 97.7, respirations 18, and O2 saturation 96% on room air. She is able to ambulate in the hallway and she will stay on heart healthy diet. ACTIVITIES: As tolerated. HOME MEDICATIONS: Basically the same, but she was admitted with, which is 1. Temazepam 50 mg at bedtime. 2. Amlodipine 5 mg twice a day. 3. Colestipol 1 g three times a day. 4. Vitamin D3 5000 units once a day. 5. Furosemide 40 mg once a day. 6. Losartan 100 mg once a day. 7. Levothyroxine 75 mcg once a day. 8. Multivitamin one a day. 9. Pravastatin 40 mg at bedtime. 10. Xarelto 20 mg at bedtime. 11. Pantoprazole 40 mg twice a day. 12. Sertraline. 13. Zoloft 50 mg once a day. 14. Saccharomyces boulardii, which is Florastor 250 mg once a day. 15. Cipro 250 mg twice a day for 7 days. FOLLOWUP: She is going to follow up with her primary care physician in 1 week and he will check on her urine culture to check for sensitivity and the patient was seen and examined before she is discharged. TIME SPENT: Discharge time is less than 30 minutes. Job ID: [id number]
[2018-07-06] MEDS ORDERED: Levothyroxine Sodium 75 MCG TAB PO SCH (06:00)
== END 2018-07-05 14:52 | disposition home or self-care (01) ==
LOC: ERS 18:49 → ERHOLD 07-05 02:59 → T4-A 07-05 04:31
PROVIDERS: ADMIT Internal Medicine; ATTEND Internal Medicine
DX: R53.83 Other fatigue (principal); K21.9 Gastro-esophageal reflux disease without esophagitis; I48.91 Unspecified atrial fibrillation; E03.9 Hypothyroidism, unspecified; K58.9 Irritable bowel syndrome, unspecified; E87.6 Hypokalemia; I13.0 Hypertensive heart and chronic kidney disease with heart failure and stage 1 through stage 4 chronic kidney disease, or unspecified chronic kidney disease; N18.9 Chronic kidney disease, unspecified; I50.9 Heart failure, unspecified; E78.00 Pure hypercholesterolemia, unspecified; I45.81 Long QT syndrome; I49.9 Cardiac arrhythmia, unspecified; E86.0 Dehydration; F32.9 Major depressive disorder, single episode, unspecified; G47.00 Insomnia, unspecified; Z79.01 Long term (current) use of anticoagulants; Z79.899 Other long term (current) drug therapy; Z98.890 Other specified postprocedural states
CPT/HCPCS: 71045; 83690; 83880; 84484 ×2; 85652; 93005 ×2; 94760; 96361; 96365; 96375; 99285; G0378 ×2; 36415; 80053; 81003; 81015; 84443; 85025; 93010; J0696; J2405

== ENCOUNTER 2018-07-07 19:12 | Observation (INO) | payer MEDICARE, OTHER ==
[2018-07-07 20:10] LABS: #Eosinphils 0.1 thou/uL (0.0-0.7); #Lymphocytes 1.9 thou/uL (1.20-3.40); #Monocytes 0.7 thou/uL (0.11-0.59); #Neutrophils 5.5 thou/uL (1.40-6.50); %Basophils 0.5 % (0.0-1.0); %Eosinophils 0.8 % (0.0-10.0); %Monocytes 8.1 % (0.0-10.0); %Neutrophils 67.6 % (42.0-75.0); Hemoglobin 12.5 g/dL (12.0-16.0); Mean Corpuscular HGB CONC 32.4 g/dL (32.0-36.0); Mean Corpuscular Hemoglobin 30.2 pg (27.0-31.0); Mean Corpuscular Volume 93.3 fL (78.0-98.0); Mean Platelet Volume 7.1 fL (7.4-10.4); Platelet Count 391 thou/uL (130-400); RBC Distribution Width 13.9 % (11.5-14.5); Red Blood Cell (RBC) Count 4.15 mill/uL (4.20-5.40); White Blood Cell (WBC) Count 8.1 thou/uL (4.8-10.8)
--- NOTE | 2018-07-07 20:25 | CT ---
FCT brain noncontrast: HISTORY: 78-year-old female with acute dysarthria FINDINGS: There is no evidence of acute intra-axial or extra-axial hemorrhage. There is no midline shift or any other mass effect. There is no extra-axial fluid collection. There is no evidence of obstructive hyd rocephalus. Calvarium is intact. IMPRESSION: No acute intracranial findings.
[2018-07-07 20:33] LABS: ALT (SGPT) 18 U/L (8-55); AST (SGOT) 26 U/L (5-34); Albumin 4.4 g/dL (3.4-4.8); Alkaline Phosphatase 70 U/L (40-150); Anion Gap 14 mmol/L (10-20); BUN (Urea Nitrogen) 20 mg/dL (9.8-20.1); Bilirubin, Total 0.4 mg/dL (0.2-1.2); Calc. Creatinine Clearance 0 mL/min (70-130); Calcium 9.4 mg/dL (7.8-10.44); Carbon Dioxide 28 mmol/L (23-31); Chloride 104 mmol/L (98-107); Estimated GFR-MDRD 63; Globulin 2.7 g/dL (2.4-3.5); Glucose 108 mg/dL (83-110); Potassium 3.3 mmol/L (3.5-5.1); Protein, Total 7.1 g/dL (6.0-8.3); Sodium 143 mmol/L (136-145)
[2018-07-07] MEDS ORDERED: Mag-Al 1200 mg/1200 mg/30 ML UDCUP ONE (20:33)
[2018-07-07] MEDS ORDERED: Lidocaine Viscous Sol 2% 15 ml UD Cup ONE (20:33)
[2018-07-07 21:40] LABS: Bilirubin Negative (Negative); Blood, Urine Negative (Negative); Clarity CLOUDY (Clear); Glucose, Urine (Dipstick) Negative (Negative); Leukocyte Small (Negative); Nitrite Negative (Negative); Protein, Urine (Dipstick) Trace mg/dL (Neg-Trace); Specific Gravity, Urine 1.017 (1.002-1.036); Urobilinogen 0.2 mg/dL (0.2-1.0)
[2018-07-07 21:41] LABS: Bacteria/HPF None Seen HPF (None Seen); Hyaline Casts/LPF 0-3 HYALINE CAST LPF (0-3 Hyaline); Pathc Cast-AUWi Flag 0.27 (0-2.49); WBC/HPF 0-3 HPF (0-3)
[2018-07-07] MEDS ORDERED: Aspirin Chewable 81 MG TAB ONE (21:43)
[2018-07-07 21:51] LABS: Other Microscopic Description Less than 2 mL rec'd
[2018-07-07] MEDS ORDERED: Lorazepam 2 MG/ML VIAL ONE (22:32)
[2018-07-07] MEDS ORDERED: Acetaminophen 325 MG TAB PO PRN (23:31)
[2018-07-07] MEDS ORDERED: Ondansetron ODT 4 MG TAB SL PRN (23:31)
[2018-07-07] MEDS ORDERED: Ondansetron PF 4 MG/2 ML Vial IVP PRN (23:31)
[2018-07-07] MEDS ORDERED: Sodium Chloride 0.9% 1,000 ML IV SCH (23:31)
[2018-07-07 23:36] LABS: Troponin I Less than 0.010 ng/mL (< 0.028)
[2018-07-08] MEDS ORDERED: Temazepam 15 MG CAP PO SCH ×2 (01:30→21:00)
[2018-07-08] MEDS ORDERED: Rivaroxaban 10 MG TAB PO SCH ×2 (01:45→21:00)
[2018-07-08] MEDS: Cipro 250 MG TAB PO SCH ×2 (02:08→13:53)
[2018-07-08 02:36] LABS: Troponin I Less than 0.010 ng/mL (< 0.028)
--- NOTE | 2018-07-08 03:21 | HP ---
This is NO Reinoso dictating a report for Wilbert Bhatti MD. CHIEF COMPLAINT: Tongue numbness and slurred speech. HISTORY OF PRESENT ILLNESS: Ms. Alexander is a very pleasant 78-year-old woman, who was recently in the hospital and discharged on 07/05/2018, at which time, she was treated for symptoms associated with the UTI. The patient presents today due to an episode of numbness and tingling in her tongue with slurred speech. The patient states this happened at approximately 5:00 pm. She was on the phone with her daughter, who states that she did make sense with regard to which she was trying to say, therefore, did not show dysarthria, however, did have slurred speech. The patient states the tongue tingling was still present on arriving to the ER. Her speech, however, has improved and is now back at baseline. The patient states that she experienced aching in her jaw bilaterally. Denies having any headaches or dizziness. Reports blurred and double vision at baseline and denies any further worsening of her vision. Denies having any nausea or vomiting. No chest pain or palpitations. She denies any fevers, chills, or sweats. REVIEW OF SYSTEMS: All other review of systems are negative apart from those mentioned above in the HPI. Of note, the patient states she is still undergoing treatment with Cipro for her recent UTI and has noted less cloudy appearance in her urine. PAST MEDICAL HISTORY: 1. Atrial fibrillation status post ablation x3. 2. Hyperlipidemia. 3. CHF. 4. Hypertension. 5. Hypothyroidism. 6. History of cataracts. 7. GERD. 8. Depression. PAST SURGICAL HISTORY: 1. Appendectomy. 2. Ablation x3 for atrial fibrillation. 3. Cholecystectomy. 4. Hernia repair. 5. Hysterectomy. 6. Fundoplication for reflux. 7. Laparoscopic adhesiolysis of May 2018. SOCIAL HISTORY: The patient denies any alcohol use. She does not smoke. Denies any drug use. ALLERGIES: NO KNOWN DRUG ALLERGIES. CURRENT MEDICATIONS: 1. Losartan. 2. Furosemide. 3. Pantoprazole. 4. Amlodipine. 5. Pravastatin. 6. Xarelto. 7. Colestipol. 8. Levothyroxine. 9. Temazepam. 10. Multivitamin. 11. Vitamin D3. 12. Sertraline. 13. Cipro. 14. Florastor. PHYSICAL EXAMINATION: GENERAL: The patient appears well developed, well nourished. She is in no acute distress. VITAL SIGNS: Temperature 98.7, pulse 66, respirations 20, O2 saturation 94% on room air, blood pressure 127/59. HEENT: Normocephalic and atraumatic. Pupils are equal, round, and reactive to light. Extraocular movements normal. No nystagmus. Facial movements normal and facial sensation intact. Full range of motion in neck. Oropharynx is clear. NECK: Supple. LUNGS: Clear to auscultation bilaterally without wheezes, rales, or rhonchi. CARDIAC: Regular rate and rhythm. ABDOMEN: Soft, nontender, nondistended. Normoactive bowel sounds present. EXTREMITIES: No lower limb edema. No calf pain. Normal sensation and power intact and normal in all extremities. Power 5/5 in all limbs. NEUROLOGIC: Alert and oriented x3. No neuro deficits on exam. No tongue deviation. SKIN: Without rash or jaundice. LABORATORY DATA: White blood count 8.1, hemoglobin 12.5, hematocrit 38.7, platelets 391. Sodium 143, potassium 3.3, chloride 104, carbon dioxide 20, anion gap 14, BUN 20, creatinine 0.87, GFR 63, glucose 108. Calcium 9.4, total bilirubin 0.4. LFTs are unremarkable. Troponin negative x3. Urinalysis notable for small leukocyte esterase, and 7-10 squamous epithelial cells, otherwise negative. IMAGING DATA: CT brain has demonstrated no acute intracranial findings. IMPRESSION AND PLAN: Ms. Alexander is a very pleasant 78-year-old woman, who is being admitted for management of the followin. Transient ischemic attack/cerebrovascular accident rule out. The patient's symptoms came on suddenly around 5:30 pm this afternoon in the form of tongue tingling and slurred speech. Unclear how long her symptoms lasted, but they have fully resolved since then. She has had no further symptoms and is well in herself. CT brain was unremarkable. We have requested investigations including echo, carotid Dopplers, and CTA head and neck. 2. Hypertension. We will resume home medications and monitor blood pressure. 3. Hyperlipidemia. We will resume her atorvastatin, she is only on 10 mg p.o. at bedtime and this may need to be increased. We will check a lipid panel with a.m. labs. 4. Hypothyroidism. We will check TSH. We will resume home medications. 5. Urinary tract infection. We will continue Cipro. 6. Atrial fibrillation. We will resume home medications including rivaroxaban. 7. Gastrointestinal prophylaxis. 8. DVT prophylaxis. 9. Full code status. The patient's surrogate decision maker is her daughter, Yee Alexander. The patient's case was discussed with Dr. Bhatti who agrees with plan of care as described above. Job ID: [id number]
[2018-07-08 05:48] LABS: Cardiac Risk 2.3 (Less than 4.5)
[2018-07-08] MEDS ORDERED: Levothyroxine Sodium 75 MCG TAB PO SCH (06:00)
--- NOTE | 2018-07-08 07:40 | RAD ---
FChest one view HISTORY: Chest pain. Reflux. COMPARISON: 07/04/2018. FINDINGS: Cardiac silhouette is magnified by projection. Pulmonary vasculature is unremarkable. Media stinum is midline. No confluent airspace consolidation or evidence of pneumothorax. boring and filling machine operator l kris overlie the chest. IMPRESSION: No active cardiopulmonary abnormalities are demonstrated.
[2018-07-08] MEDS ORDERED: Saccharomyces boulardii 250 MG CAP PO SCH (09:00)
[2018-07-08] MEDS ORDERED: Aspirin 81 mg Enteric Coated Tablet PO SCH (09:00)
[2018-07-08] MEDS ORDERED: Losartan 25 MG TAB PO SCH (09:00)
[2018-07-08] MEDS ORDERED: Amlodipine 5 MG TAB PO SCH (09:00)
[2018-07-08] MEDS ORDERED: Furosemide 40 MG TAB PO SCH (09:00)
--- NOTE | 2018-07-08 10:12 | ULT ---
F Ultrasound Doppler duplex carotid: 07/08/2018 HISTORY: 78-year-old female with TIA, acute dysarthria TECHNIQUE: Grayscale, color-flow, and spectral analysis, of major arteries of neck. FINDINGS: Vertebral artery flow is antegrade bilaterally. There is predominantly mild atherosclerotic plaque at the bilateral internal carotid arteries, including carotid bulbs. Highest peak systolic velocities in the internal carotid arteries are 60 cm/s on the right and 165 cm /s on the left. Left internal carotid end-diastolic velocity is up to 25 cm/s. ICA/CCA ratios are 0.7 on the right and 1.5 on the left. IMPRESSION: 1. Atherosclerosis of bilateral proximal internal carotid arteries. 2. Velocities suggestive of 50-69% stenosis in the left internal carotid. 3. No hemodynamically significant stenosis in the right internal carotid.
--- NOTE | 2018-07-08 11:01 | MRI ---
[facility] Brain WO Con: 07/08/2018 8:15 AM CLINICAL HISTORY: TIA. COMPARISON: Head CT, previous day FINDINGS: Extra axial spaces: Normal in size and morphology for the patient's age. Hemorrhage: None. Ventricular system: Normal in size and morphology for the patient's age. Basal cisterns: Normal. Cerebral parenchyma: Normal. Midline shift: None. Cerebellum: Normal. Brainstem: Normal. Paranasal sinuses:Retention cyst formation of the left maxillary sinus Partially empty sella. IMPRESSION:No acute intracranial abnormality.
[2018-07-08 12:17] VITALS: TEMP 98.3
[2018-07-08] MEDS ORDERED: ALPRAZolam 0.25 MG TAB PO PRN (13:35)
[2018-07-08 14:20] VITALS: BMI 25.2
[2018-07-08 15:19] LABS: Free T4 (Free Thyroxine) 1.39 ng/dL (0.70-1.48); Thyroid Stimulating Hormone 0.5651 uIU/mL (0.35-4.94)
[2018-07-08 15:51] VITALS: BP 130/62
[2018-07-08] MEDS ORDERED: Lidocaine 2% Viscous Solution 20 ML, Aluminum & Magnesium Hydroxide 30 ML, Donnatal Eli... SSW SCH (16:00)
[2018-07-08 17:03] LABS: Folate (Folic Acid) 15.6 ng/mL (7.0-31.4)
[2018-07-08] MEDS ORDERED: Atorvastatin Calcium 10 MG TAB PO SCH (21:00)
--- NOTE | 2018-07-09 05:52 | DIS ---
DATE OF ADMISSION: 07/07/2018 DATE OF DISCHARGE: 07/08/2018 ALLERGIES: NO KNOWN DRUG ALLERGIES. CHIEF COMPLAINT: Tongue tingling and slurred speech. FINAL DIAGNOSES: 1. Transient slurred speech, symptoms completely resolved, questionably secondary to transient ischemic attack, resolved, MRI negative for stroke. 2. Anxiety and depression with panic attack with associated tongue tingling, resolved with Xanax. 3. Mild left internal carotid artery stenosis, 50% to 69% per Doppler, not hemodynamically significant. 4. Paroxysmal atrial fibrillation, currently in sinus rhythm status post ablation x3, on anticoagulation with Xarelto. 5. Hypothyroidism, TSH and free T4 normal this hospitalization. 6. Hypertension. 7. Hyperlipidemia. 8. Recently diagnosed urinary tract infection. PROCEDURE PERFORMED: None. LABORATORY RESULTS: White blood cell count 8.1, hemoglobin 12.5, hematocrit 38.7, platelet count 391. Sodium 143, potassium 3.3, BUN 20, creatinine 0.87. AST, ALT, and alkaline phosphatase all within normal limits. Troponin negative x3. Cholesterol 146, triglycerides 114, LDL 59, HDL 64. Vitamin B12 normal at 301. Folate normal 15.6, free T4 1.39, TSH 0.5651. Urinalysis was negative. IMAGING RESULTS: Carotid Doppler showed a 50% to 69% stenosis in the left internal carotid, no hemodynamically significant stenosis in the right internal carotid. Brain MRI, no acute intracranial abnormality. Brain CT, no acute intracranial findings. Chest x-ray, no acute cardiopulmonary abnormalities demonstrated. Echocardiogram report, ejection fraction visually estimated at 60% to 65%, mild diastolic dysfunction, mild LVH, mild to moderate MR with MAC. Structurally normal aortic valve. Mild to moderate tricuspid regurgitation. Mild pulmonic regurgitation present. CONSULTATIONS: None. VITAL SIGNS: Blood pressure 130/62, O2 saturation is 95% on room air, pulse is 95, respirations 12. The patient is afebrile. HOSPITAL COURSE: The patient is a pleasant 78-year-old female with past medical history significant for paroxysmal atrial fibrillation, hypertension, hypothyroidism, who presented to the hospital with complaints of slurred speech. The daughter is at bedside and provides some history. Apparently, the patient states that she was on the phone with her daughter when her symptoms began. She denies any focal weakness or facial drooping. The daughter did say that her speech was slurred and the patient describes some expressive aphasia. The patient denies any chest pain, shortness of breath, diaphoresis, nausea, or vomiting. The patient describes the sensation as some tongue tingling, inability to get out her words, and flip-flopping and nervousness in her chest. She was admitted for TIA/stroke rule out. Her workup has been negative. Her thyroid function panels were all within normal limits as well as her B12. The patient had a somewhat similar episode of tongue tingling and some flip-flopping in her chest. The patient remained in sinus rhythm. All vital signs were normal. Her blood sugar was normal and her symptoms were relieved with Xanax. Imaging studies were positive for some mild carotid artery stenosis on the left. This was explained to the patient and she will continue followup with her primary bulkhead carpenter, Dr. Graf. PHYSICAL EXAMINATION: GENERAL: This patient is a well-appearing elderly female, in no acute distress. HEENT: Atraumatic and normocephalic. Eye movements intact. NECK: Supple. No lymphadenopathy. No JVD. RESPIRATORY: Regular respiratory rate and pattern. Clear to auscultation bilaterally. CV: S1 and S2. Regular rate and rhythm. No appreciable murmurs, rubs, or gallops. GI: Soft, nontender, normal bowel sounds. PERIPHERAL VASCULAR: No edema. +2 DP pulses bilaterally. MUSCULOSKELETAL: No joint effusion or swelling. NEUROLOGIC: Cranial nerves 2 through 12 intact. No focal deficits. SKIN: Warm and dry. No rashes. CONDITION AT DISCHARGE: Stable. DISCHARGE MEDICATIONS: The patient will continue her home medications, amlodipine 5 mg p.o. b.i.d., vitamin D3 supplement 5000 units daily, colestipol 1 g tab as directed, levothyroxine 75 mcg tablet one tablet daily, losartan 100 mg tablet one daily, one multivitamin daily, pantoprazole 40 mg tablet one tablet p.o. b.i.d., pravastatin 40 mg tablet one tablet p.o. at bedtime, rivaroxaban 20 mg tablet p.o. at bedtime, Restoril 50 mg capsule one capsule p.o. at bedtime. She will continue Cipro 250 mg tablet one tablet p.o. q.12 to finish out her course, Lasix 40 mg tablet daily, Florastor 250 mg tablet daily, sertraline 50 mg tablet one tablet p.o. daily. Given the finding of carotid artery stenosis, she will be started on aspirin 81 mg tablet daily. DISCHARGE DISPOSITION: Home. PLAN: The patient will continue her above home medication regimen again with the addition of aspirin. She will follow up with her primary bulkhead carpenter, Dr. Graf. Her symptoms have resolved with Xanax, and I believe this is largely secondary to anxiety, given her negative workup here. She will also follow up with her primary care provider as well. The patient does have many social stresses at this time including a sister who is very ill and an autistic grandson, and she will likely benefit from some counseling as well. All findings were explained to the patient and all questions were answered to the patient's satisfaction. Care was discussed with Dr. Gee who agrees with the above. Job ID: [id number]
--- NOTE | 2018-07-13 15:59 | EKG ---
Test Reason : Blood Pressure : / mmHG Vent. Rate : 073 BPM Atrial Rate : 073 BPM P-R Int : 170 ms QRS Dur : 092 ms QT Int : 434 ms P-R-T Axes : 067 -06 110 degrees QTc Int : 478 ms Sinus rhythm Premature ventricular complexes Left ventricular hypertrophy with repolarization abnormality Abnormal ECG Confirmed by ZAIN ARGUETA, VERONICA ([id number]), assignment editor VIKTOR CUADRA ([id number]) on 07/13/2018 3:58:56 PM Referred By: Confirmed By:VERONICA PITTMAN MD
== END 2018-07-08 18:38 | disposition home or self-care (01) ==
LOC: ERS 19:12 → 2SW 23:17
PROVIDERS: ADMIT Internal Medicine; ATTEND Internal Medicine
DX: R47.81 Slurred speech (principal); K14.8 Other diseases of tongue; I11.0 Hypertensive heart disease with heart failure; I50.9 Heart failure, unspecified; I48.91 Unspecified atrial fibrillation; E03.9 Hypothyroidism, unspecified; E78.5 Hyperlipidemia, unspecified; F32.9 Major depressive disorder, single episode, unspecified; F41.8 Other specified anxiety disorders; I65.22 Occlusion and stenosis of left carotid artery; K21.9 Gastro-esophageal reflux disease without esophagitis; N39.0 Urinary tract infection, site not specified; Z79.899 Other long term (current) drug therapy
CPT/HCPCS: 70450; 70551; 71045; 80053; 80061; 82607; 82746; 82962; 84439; 84443; 84484 ×3; 85025; 87086; 93005; 93306; 93880; 96374; 99285; G0378 ×2; 36415; 36416; 81003; 81015; J2060

== ENCOUNTER 2018-10-24 13:53 | Outpatient (CLI) | payer MEDICARE, OTHER ==
--- NOTE | 2018-10-24 14:06 | RAD ---
EXAM: Chest 2 views: HISTORY: Fever COMPARISON: 07/16/2015 FINDINGS: There is a normal-sized cardiomediastinal silhouette. Airspace opacity is seen projecting over the l eft lower lobe. No pleural effusion is present. The bones are unremarkable. IMPRESSION: Left lower lobe pneumonia
== END 2018-10-24 13:54 | disposition home or self-care (01) ==
LOC: RAD-FRANK 13:53
PROVIDERS: ATTEND Nurse Practitioner Family
DX: R50.9 Fever, unspecified (principal); J18.1 Lobar pneumonia, unspecified organism
CPT/HCPCS: 71046

== ENCOUNTER 2021-03-24 19:57 | Emergency (ER) | payer MEDICARE, OTHER ==
[~2021-03-24 19:57] MED LIST changes: +ISOVUE-370 76%-LOCM 1 ML ONE; -Iopamidol 370 76% 100 ML VIAL ONE
[2021-03-24] MEDS ORDERED: Magnesium 2 GM/50 ML BAG (IN WATER) ONE (20:19)
[2021-03-24 20:35] LABS: #Basophils 0.1 thou/uL (0.0-0.2); #Eosinphils 0.1 thou/uL (0.0-0.7); #Lymphocytes 1.4 thou/uL (1.20-3.40); #Monocytes 0.5 thou/uL (0.11-0.59); #Neutrophils 4.5 thou/uL (1.40-6.50); %Basophils 0.8 % (0.0-1.0); %Lymphocytes 21.6 % (21.0-51.0); %Monocytes 7.5 % (0.0-10.0); %Neutrophils 69.1 % (42.0-75.0); Hemoglobin 12.9 g/dL (12.0-16.0); Mean Corpuscular HGB CONC 33.4 g/dL (32.0-36.0); Mean Corpuscular Hemoglobin 31.4 pg (27.0-31.0); Mean Corpuscular Volume 93.8 fL (78.0-98.0); Mean Platelet Volume 6.6 fL (7.4-10.4); Platelet Count 354 thou/uL (130-400); RBC Distribution Width 12.5 % (11.5-14.5); Red Blood Cell (RBC) Count 4.11 mill/uL (4.20-5.40); White Blood Cell (WBC) Count 6.5 thou/uL (4.8-10.8)
[2021-03-24 20:47] LABS: INR-International Normal Ratio 1.1; PTT 38.4 sec (22.9-36.1)
[2021-03-24 20:48] LABS: Bacteria/HPF 4+ HPF (None Seen); Bilirubin Negative (Negative); Blood, Urine Trace (Negative); Clarity Turbid (Clear); Glucose, Urine (Dipstick) Normal (Negative); Ketone, Urine Negative (Negative); Leukocyte 75 Leu/uL (Negative); Nitrite Negative (Negative); Protein, Urine (Dipstick) Negative (Neg-Trace); Specific Gravity, Urine 1.006 (1.002-1.036); Squamous Epithelial 0-3 HPF (0-3); Urobilinogen Normal mg/dL (Less than 2); WBC/HPF 0-3 HPF (0-3); pH, Urine 7.5 (5.0-9.0)
[2021-03-24 20:56] LABS: ALT (SGPT) 15 U/L (8-55); AST (SGOT) 25 U/L (5-34); Albumin 4.3 g/dL (3.4-4.8); Alkaline Phosphatase 86 U/L (40-110); Anion Gap 16 mmol/L (10-20); BUN (Urea Nitrogen) 16 mg/dL (9.8-20.1); Bilirubin, Total 0.4 mg/dL (0.2-1.2); Calc. Creatinine Clearance 0 mL/min (70-130); Carbon Dioxide 28 mmol/L (23-31); Chloride 103 mmol/L (98-107); Globulin 2.9 g/dL (2.4-3.5); Glucose 107 mg/dL (83-110); Lipase 27 U/L (8-78); Potassium 3.6 mmol/L (3.5-5.1); Protein, Total 7.2 g/dL (5.8-8.1); Sodium 143 mmol/L (136-145)
== END 2021-03-24 23:22 | disposition home or self-care (01) ==
LOC: ERS 19:57
DX: N39.0 Urinary tract infection, site not specified (principal); E86.0 Dehydration; R16.0 Hepatomegaly, not elsewhere classified; I11.0 Hypertensive heart disease with heart failure; I50.9 Heart failure, unspecified; E03.9 Hypothyroidism, unspecified; E78.5 Hyperlipidemia, unspecified; E78.00 Pure hypercholesterolemia, unspecified; K21.9 Gastro-esophageal reflux disease without esophagitis
CPT/HCPCS: 36415; 71045; 71275; 74174; 80053; 81003; 81015; 83605; 83690; 83735; 83880; 84443; 84484; 85025; 85610; 85730; 87040; 87086; 93005; 96365; J3475

== ENCOUNTER 2021-06-02 11:45 | Outpatient (CLI) | payer MEDICARE | END 2021-06-02 11:46 | disposition home or self-care (01) | LOC: PET 11:45 | PROVIDERS: ATTEND Internal Medicine Hematology & Oncology | DX: R91.1 Solitary pulmonary nodule (principal); R91.8 Other nonspecific abnormal finding of lung field; K76.9 Liver disease, unspecified | CPT/HCPCS: 78815; A9552 ==

== ENCOUNTER 2021-10-28 17:24 | Emergency (ER) | payer MEDICARE ==
[2021-10-28] MEDS ORDERED: Silver Nitrate Application 1 EACH ONE ×2 (17:52→17:53)
== END 2021-10-28 18:27 | disposition home or self-care (01) ==
LOC: ERS 17:24
DX: R04.0 Epistaxis (principal); I48.91 Unspecified atrial fibrillation; E78.5 Hyperlipidemia, unspecified; E78.00 Pure hypercholesterolemia, unspecified; I11.0 Hypertensive heart disease with heart failure; I50.9 Heart failure, unspecified; E03.9 Hypothyroidism, unspecified; K21.9 Gastro-esophageal reflux disease without esophagitis; Z79.01 Long term (current) use of anticoagulants; Z79.899 Other long term (current) drug therapy
CPT/HCPCS: 30901

== ENCOUNTER 2022-05-27 17:32 | Emergency (ER) | payer MEDICARE ==
[2022-05-27 19:03] LABS: #Basophils 0.1 thou/uL (0.0-0.2); #Eosinphils 0.1 thou/uL (0.0-0.7); #Lymphocytes 1.2 thou/uL (1.20-3.40); #Monocytes 0.5 thou/uL (0.11-0.59); #Neutrophils 4.1 thou/uL (1.40-6.50); %Eosinophils 1.1 % (0.0-10.0); %Lymphocytes 20.9 % (21.0-51.0); %Monocytes 8.4 % (0.0-10.0); %Neutrophils 68.7 % (42.0-75.0); Hemoglobin 11.6 g/dL (12.0-16.0); Mean Corpuscular HGB CONC 33.7 g/dL (32.0-36.0); Mean Corpuscular Hemoglobin 31.7 pg (27.0-31.0); Mean Platelet Volume 7.1 fL (7.4-10.4); Platelet Count 308 10x3/uL (130-400); RBC Distribution Width 12.4 % (11.5-14.5); Red Blood Cell (RBC) Count 3.66 mill/uL (4.20-5.40)
[2022-05-27] MEDS ORDERED: Aspirin 325 MG TAB ONE (19:23)
[2022-05-27 19:26] LABS: ALT (SGPT) 14 U/L (8-55); AST (SGOT) 24 U/L (5-34); Alkaline Phosphatase 75 U/L (40-110); Anion Gap 12 mmol/L (10-20); BUN (Urea Nitrogen) 21 mg/dL (9.8-20.1); Bilirubin, Total 0.3 mg/dL (0.2-1.2); Calc. Creatinine Clearance 0 mL/min (70-130); Calcium 8.8 mg/dL (7.8-10.44); Carbon Dioxide 28 mmol/L (23-31); Chloride 103 mmol/L (98-107); Estimated GFR 48; Globulin 2.3 g/dL (2.4-3.5); Glucose 114 mg/dL (83-110); Potassium 4.1 mmol/L (3.5-5.1); Protein, Total 6.3 g/dL (5.8-8.1); Sodium 139 mmol/L (136-145)
[2022-05-27] MEDS ORDERED: Mag-Al 1200 mg/1200 mg/30 ML UDCUP ONE (20:24)
[2022-05-27] MEDS ORDERED: Lidocaine Viscous Sol 2% 15 ml UD Cup ONE (20:24)
[2022-05-27] MEDS ORDERED: Famotidine/PF 20 mg/2ml Vial ONE (20:24)
== END 2022-05-27 20:37 | disposition home or self-care (01) ==
LOC: ERS 17:32
DX: R07.9 Chest pain, unspecified (principal); E78.00 Pure hypercholesterolemia, unspecified; E03.9 Hypothyroidism, unspecified; I11.0 Hypertensive heart disease with heart failure; I50.9 Heart failure, unspecified; K21.9 Gastro-esophageal reflux disease without esophagitis
CPT/HCPCS: 36415; 71045; 80053; 83880; 84484; 85025; 85379; 93005; 96374; S0028

== ENCOUNTER 2022-11-11 12:14 | Inpatient (IN) | payer MEDICARE ==
[2022-11-11 12:55] LABS: #Monocytes 1.3 thou/uL (0.11-0.59); #Neutrophils 10.1 thou/uL (1.40-6.50); %Basophils 0.2 % (0.0-1.0); %Lymphocytes 13.8 % (21.0-51.0); %Monocytes 9.5 % (0.0-10.0); %Neutrophils 76.2 % (42.0-75.0); Hematocrit 35.3 % (36.0-47.0); Hemoglobin 11.8 g/dL (12.0-16.0); Mean Corpuscular HGB CONC 33.4 g/dL (32.0-36.0); Mean Corpuscular Hemoglobin 29.7 pg (27.0-31.0); Mean Corpuscular Volume 88.9 fl (78.0-98.0); Mean Platelet Volume 9.4 fL (7.4-10.4); Platelet Count 413 10x3/uL (130-400); RBC Distribution Width 14.2 % (11.5-14.5); Red Blood Cell (RBC) Count 3.97 mill/uL (4.20-5.40); White Blood Cell (WBC) Count 13.2 10x3/uL (4.8-10.8)
[2022-11-11] MEDS ORDERED: Metoclopramide HCl 10 MG/2 ML VIAL ONE (13:03)
[2022-11-11] MEDS ORDERED: Morphine 4 MG/ML VIAL ONE ×2 (13:03→13:40)
[2022-11-11 13:14] LABS: ALT (SGPT) 18 U/L (8-55); AST (SGOT) 27 U/L (5-34); Albumin 4.1 g/dL (3.4-4.8); Alkaline Phosphatase 72 U/L (40-110); Anion Gap 17 mmol/L (10-20); BUN (Urea Nitrogen) 24 mg/dL (9.8-20.1); Bilirubin, Total 0.4 mg/dL (0.2-1.2); Calc. Creatinine Clearance 0 mL/min (70-130); Calcium 9.3 mg/dL (7.8-10.44); Carbon Dioxide 26 mmol/L (23-31); Chloride 95 mmol/L (98-107); Estimated GFR 36; Globulin 3.1 g/dL (2.4-3.5); Glucose 110 mg/dL (83-110); Lipase 22 U/L (8-78); Potassium 3.2 mmol/L (3.5-5.1); Protein, Total 7.2 g/dL (5.8-8.1); Sodium 135 mmol/L (136-145)
[2022-11-11] MEDS ORDERED: Morphine 2 MG/ML VIAL ONE (13:43)
[2022-11-11] MEDS ORDERED: Ondansetron PF 4 MG/2 ML Vial IVP PRN (14:15)
[2022-11-11] MEDS ORDERED: Ondansetron ODT 4 MG TAB SL PRN (14:15)
[2022-11-11] MEDS ORDERED: Acetaminophen 325 MG TAB PO PRN (14:15)
[2022-11-11] MEDS ORDERED: hydrALAZINE 20 MG/ML VIAL SLOW IVP PRN (14:32)
[2022-11-11] MEDS ORDERED: Morphine 2 MG/ML VIAL SLOW IVP PRN (14:32)
[2022-11-11] MEDS ORDERED: Metoclopramide HCl 10 MG/2 ML VIAL IVP PRN (14:32)
[2022-11-11] MEDS ORDERED: Acetaminophen 650 MG Suppository PR PRN (14:32)
[2022-11-11] MEDS ORDERED: Morphine 4 MG/ML VIAL SLOW IVP PRN (14:32)
[2022-11-11] MEDS ORDERED: Electrolyte Replacement Protocol 1 EACH FS SCH (14:45)
[2022-11-11] MEDS ORDERED: HYDROmorphone 0.5 MG/0.5 ML SYRINGE ONE (15:15)
[2022-11-11 16:08] LABS: Magnesium 1.7 mg/dL (1.6-2.6)
[2022-11-11] MEDS ORDERED: Pantoprazole 40 MG VIAL IVP SCH (16:15)
[2022-11-11] MEDS: NS 0.9% w/ 20 MEQ KCL 1,000 ML/1,000 ML BAG IV SCH (16:19)
[2022-11-11 16:21] VITALS: BMI 28.9
[2022-11-11 17:22] LABS: Lactic Acid 2.9 mmol/L (0.5-2.2)
[2022-11-11] MEDS ORDERED: Magnesium 2 GM/50 ML(in water) 2 GM in Premix Bag 1 BAG IVPB SCH (22:00)
[2022-11-11] MEDS: Potassium Chloride 20 MEQ in Premix Bag 1 BAG IVPB SCH (22:21)
[2022-11-11] MEDS: Pantoprazole 40 MG VIAL IVP SCH (22:23)
[2022-11-12] MEDS ORDERED: hydrOXYzine 25 MG/ML VIAL IM SCH (01:00)
[2022-11-12] MEDS: NS 0.9% w/ 20 MEQ KCL 1,000 ML/1,000 ML BAG IV SCH ×3 (06:19→20:39)
[2022-11-12 06:23] LABS: #Monocytes 0.9 thou/uL (0.11-0.59); #Neutrophils 6.7 thou/uL (1.40-6.50); %Basophils 0.1 % (0.0-1.0); %Eosinophils 0.1 % (0.0-10.0); %Lymphocytes 13.4 % (21.0-51.0); %Monocytes 10.6 % (0.0-10.0); %Neutrophils 75.6 % (42.0-75.0); Hematocrit 33.4 % (36.0-47.0); Hemoglobin 11.2 g/dL (12.0-16.0); Mean Corpuscular HGB CONC 33.5 g/dL (32.0-36.0); Mean Corpuscular Volume 89.5 fl (78.0-98.0); Mean Platelet Volume 9.4 fL (7.4-10.4); Platelet Count 367 10x3/uL (130-400); RBC Distribution Width 14.4 % (11.5-14.5); Red Blood Cell (RBC) Count 3.73 mill/uL (4.20-5.40); White Blood Cell (WBC) Count 8.8 10x3/uL (4.8-10.8)
[2022-11-12 06:43] LABS: Bilirubin Negative (Negative); Blood, Urine Negative (Negative); Clarity Clear (Clear); Glucose, Urine (Dipstick) Normal (Negative); Ketone, Urine Negative (Negative); Leukocyte Negative Leu/uL (Negative); Nitrite Negative (Negative); Protein, Urine (Dipstick) Negative (Neg-Trace); RBC/HPF 0-3 HPF (0-3); Specific Gravity, Urine 1.013 (1.002-1.036); Squamous Epithelial 0-3 HPF (0-3); Urobilinogen Normal mg/dL (Less than 2); WBC/HPF None Seen HPF (0-3)
[2022-11-12 06:44] LABS: Bacteria/HPF 3+ HPF (None Seen)
[2022-11-12 06:57] LABS: Anion Gap 13 mmol/L (10-20); BUN (Urea Nitrogen) 17 mg/dL (9.8-20.1); Calc. Creatinine Clearance 39 mL/min (70-130); Calcium 8.4 mg/dL (7.8-10.44); Carbon Dioxide 27 mmol/L (23-31); Chloride 101 mmol/L (98-107); Estimated GFR 45; Glucose 106 mg/dL (83-110); Magnesium 2.4 mg/dL (1.6-2.6); Potassium 3.2 mmol/L (3.5-5.1); Sodium 138 mmol/L (136-145)
[2022-11-12] MEDS ORDERED: Potassium Chloride 20 MEQ TAB PO SCH (08:00)
[2022-11-12] MEDS: Potassium Chloride 20 MEQ in Premix Bag 1 BAG IVPB SCH ×4 (08:00→13:48)
[2022-11-12] MEDS: Pantoprazole 40 MG VIAL IVP SCH ×2 (08:01→20:39)
[2022-11-12] MEDS ORDERED: hydrALAZINE 20 MG/ML VIAL SLOW IVP PRN (08:40)
[2022-11-12] MEDS ORDERED: Electrolyte Replacement Protocol 1 EACH FS ONE (08:40)
[2022-11-12] MEDS ORDERED: MD-Gastroview 120 ML BOT ONE (08:59)
[2022-11-12] MEDS: Amlodipine 5 MG TAB PO SCH (20:40)
[2022-11-12] MEDS: Atorvastatin Calcium 10 MG TAB PO SCH (20:40)
[2022-11-12] MEDS: Temazepam 15 MG CAP PO SCH (20:41)
[2022-11-13] MEDS: NS 0.9% w/ 20 MEQ KCL 1,000 ML/1,000 ML BAG IV SCH (04:53)
[2022-11-13 05:25] LABS: #Monocytes 0.9 thou/uL (0.11-0.59); #Neutrophils 8.2 thou/uL (1.40-6.50); %Basophils 0.2 % (0.0-1.0); %Eosinophils 0.1 % (0.0-10.0); %Lymphocytes 6.1 % (21.0-51.0); %Monocytes 8.8 % (0.0-10.0); %Neutrophils 84.3 % (42.0-75.0); Hematocrit 33.4 % (36.0-47.0); Hemoglobin 10.6 g/dL (12.0-16.0); Mean Corpuscular HGB CONC 31.7 g/dL (32.0-36.0); Mean Corpuscular Hemoglobin 29.4 pg (27.0-31.0); Mean Platelet Volume 9.4 fL (7.4-10.4); Platelet Count 373 10x3/uL (130-400); RBC Distribution Width 14.8 % (11.5-14.5); Red Blood Cell (RBC) Count 3.61 mill/uL (4.20-5.40); White Blood Cell (WBC) Count 9.7 10x3/uL (4.8-10.8)
[2022-11-13 05:47] LABS: Anion Gap 14 mmol/L (10-20); BUN (Urea Nitrogen) 12 mg/dL (9.8-20.1); Calc. Creatinine Clearance 49 mL/min (70-130); Calcium 8.7 mg/dL (7.8-10.44); Carbon Dioxide 26 mmol/L (23-31); Chloride 111 mmol/L (98-107); Estimated GFR 61; Glucose 120 mg/dL (83-110); Potassium 4.2 mmol/L (3.5-5.1); Sodium 147 mmol/L (136-145)
[2022-11-13 05:54] LABS: Mean Corpuscular Volume 92.5 fl (78.0-98.0)
[2022-11-13] MEDS: Losartan 25 MG TAB PO SCH (09:42)
[2022-11-13] MEDS: Pantoprazole 40 MG VIAL IVP SCH ×2 (09:43→21:05)
[2022-11-13] MEDS: Amlodipine 5 MG TAB PO SCH ×2 (09:43→21:04)
[2022-11-13] MEDS: Sertraline 100 MG TAB PO SCH (09:43)
[2022-11-13] MEDS: Levothyroxine Sodium 75 MCG TAB PO SCH (09:43)
[2022-11-13] MEDS: Aspirin 81 mg Enteric Coated Tablet PO SCH (09:43)
[2022-11-13 14:23] LABS: Sodium 143 mmol/L (136-145)
[2022-11-13] MEDS ORDERED: Rivaroxaban 10 MG TAB PO SCH (17:00)
[2022-11-13] MEDS ORDERED: tiZANidine HCl 4 MG TAB PO SCH (20:45)
[2022-11-13] MEDS: Atorvastatin Calcium 10 MG TAB PO SCH (21:04)
[2022-11-13] MEDS: Temazepam 15 MG CAP PO SCH (21:05)
[2022-11-14 04:36] LABS: Anion Gap 12 mmol/L (10-20); BUN (Urea Nitrogen) 12 mg/dL (9.8-20.1); Calc. Creatinine Clearance 52 mL/min (70-130); Calcium 8.9 mg/dL (7.8-10.44); Carbon Dioxide 25 mmol/L (23-31); Chloride 108 mmol/L (98-107); Estimated GFR 65; Glucose 111 mg/dL (83-110); Potassium 3.9 mmol/L (3.5-5.1); Sodium 141 mmol/L (136-145)
[2022-11-14] MEDS: Levothyroxine Sodium 75 MCG TAB PO SCH (08:26)
[2022-11-14] MEDS: Aspirin 81 mg Enteric Coated Tablet PO SCH (08:26)
[2022-11-14] MEDS: Amlodipine 5 MG TAB PO SCH (08:26)
[2022-11-14] MEDS: Pantoprazole 40 MG VIAL IVP SCH (08:26)
[2022-11-14] MEDS: Sertraline 100 MG TAB PO SCH (08:26)
[2022-11-14] MEDS: Losartan 25 MG TAB PO SCH (08:26)
[2022-11-14 11:10] VITALS: BP 147/76; TEMP 98.1
[2022-11-14] MEDS ORDERED: Rivaroxaban 15 MG TAB PO SCH (17:00)
== END 2022-11-14 14:10 | disposition home or self-care (01) | DRG 389 ==
LOC: SUATTDRO 12:14 → ERS 12:14 → T4-A 14:04
PROVIDERS: ADMIT Family Medicine; ATTEND Hospitalist
DX: K56.600 Partial intestinal obstruction, unspecified as to cause (principal); E87.1 Hypo-osmolality and hyponatremia; E87.20 Acidosis, unspecified; N17.9 Acute kidney failure, unspecified; I48.20 Chronic atrial fibrillation, unspecified; E78.00 Pure hypercholesterolemia, unspecified; I11.0 Hypertensive heart disease with heart failure; I50.9 Heart failure, unspecified; K21.9 Gastro-esophageal reflux disease without esophagitis; F32.A Depression, unspecified; E03.9 Hypothyroidism, unspecified; E87.6 Hypokalemia; D72.829 Elevated white blood cell count, unspecified; E86.1 Hypovolemia; E27.8 Other specified disorders of adrenal gland; Z90.49 Acquired absence of other specified parts of digestive tract; Z90.710 Acquired absence of both cervix and uterus; Z91.041 Radiographic dye allergy status; Z79.899 Other long term (current) drug therapy; Z98.890 Other specified postprocedural states
CPT/HCPCS: 36415; 36416; 71045; 74176; 74250; 80048; 81001; 83605; 83690; 83735; 84443; 85025; 93005; 96361; 96374; 96375; 96376; C9113; J1170; J2270; J2272; J2765; J3410; J3475; J3480; Q9963

== ENCOUNTER 2023-01-22 11:13 | Outpatient (CLI) | payer MEDICARE | END 2023-01-22 11:14 | disposition home or self-care (01) | LOC: MRI 11:13 | PROVIDERS: ATTEND Nurse Practitioner Family | DX: M47.22 Other spondylosis with radiculopathy, cervical region (principal); R29.898 Other symptoms and signs involving the musculoskeletal system; M48.02 Spinal stenosis, cervical region | CPT/HCPCS: 72141 ==

== ENCOUNTER 2023-01-24 20:54 | Inpatient (IN) | payer MEDICARE ==
[~2023-01-24 20:54] MED LIST changes: -ISOVUE-370 76%-LOCM 1 ML ONE; +Iopamidol-370 76% 500 ML MDV (1 ML CHARGE) ONE
[2023-01-24 22:44] LABS: #Monocytes 0.5 thou/uL (0.11-0.59); #Neutrophils 15.1 thou/uL (1.40-6.50); %Basophils 0.2 % (0.0-1.0); %Lymphocytes 2.8 % (21.0-51.0); %Monocytes 3.2 % (0.0-10.0); %Neutrophils 93.5 % (42.0-75.0); Hematocrit 36.4 % (36.0-47.0); Mean Corpuscular Hemoglobin 30.8 pg (27.0-31.0); Mean Corpuscular Volume 93.6 fl (78.0-98.0); Mean Platelet Volume 9.8 fL (7.4-10.4); Platelet Count 333 10x3/uL (130-400); RBC Distribution Width 14.4 % (11.5-14.5); Red Blood Cell (RBC) Count 3.89 mill/uL (4.20-5.40); White Blood Cell (WBC) Count 16.2 10x3/uL (4.8-10.8)
[2023-01-24] MEDS ORDERED: diphenhydrAMINE 50 MG/ML VIAL ONE (23:23)
[2023-01-24] MEDS ORDERED: Morphine 4 MG/ML VIAL ONE (23:23)
[2023-01-24] MEDS ORDERED: Famotidine/PF 20 mg/2ml Vial ONE (23:24)
[2023-01-24] MEDS ORDERED: methylPREDNISolone Sod Succ/PF 125 MG/2 ML VIAL ONE (23:24)
[2023-01-24] MEDS ORDERED: Ondansetron PF 4 MG/2 ML Vial ONE (23:24)
[2023-01-24 23:27] LABS: ALT (SGPT) 26 U/L (8-55); AST (SGOT) 44 U/L (5-34); Albumin 4.7 g/dL (3.4-4.8); Alkaline Phosphatase 82 U/L (40-110); Anion Gap 23 mmol/L (10-20); BUN (Urea Nitrogen) 19 mg/dL (9.8-20.1); Bilirubin, Total 0.4 mg/dL (0.2-1.2); Calc. Creatinine Clearance 0 mL/min (70-130); Calcium 9.6 mg/dL (7.8-10.44); Carbon Dioxide 22 mmol/L (23-31); Chloride 97 mmol/L (98-107); Estimated GFR 54; Globulin 2.9 g/dL (2.4-3.5); Glucose 175 mg/dL (83-110); Potassium 3.7 mmol/L (3.5-5.1); Protein, Total 7.6 g/dL (5.8-8.1); Sodium 138 mmol/L (136-145)
[2023-01-24 23:28] LABS: Troponin I Less than 0.010 ng/mL (< 0.028)
[2023-01-25] MEDS ORDERED: Furosemide 40 MG/4 ML VIAL ONE (01:47)
[2023-01-25] MEDS ORDERED: Acetaminophen 325 MG TAB PO PRN (03:43)
[2023-01-25] MEDS ORDERED: Ondansetron ODT 4 MG TAB PO PRN (03:43)
[2023-01-25] MEDS ORDERED: Morphine 2 MG/ML VIAL SLOW IVP PRN (03:50)
[2023-01-25 04:05] LABS: Bacteria/HPF None Seen HPF (None Seen); Bilirubin Negative (Negative); Blood, Urine 1+ (Negative); CAUTI Indications for Culture Alt mental st,lethar; Clarity Clear (Clear); Glucose, Urine (Dipstick) Normal (Negative); Ketone, Urine Negative (Negative); Leukocyte Negative Leu/uL (Negative); Nitrite Negative (Negative); Protein, Urine (Dipstick) 20 mg/dL (Neg-Trace); RBC/HPF 0-3 HPF (0-3); Specific Gravity, Urine 1.025 (1.002-1.036); Squamous Epithelial 0-3 HPF (0-3); Urobilinogen Normal mg/dL (Less than 2); WBC/HPF 0-3 HPF (0-3)
[2023-01-25 04:23] LABS: Troponin I Less than 0.010 ng/mL (< 0.028)
[2023-01-25 04:29] LABS: Urine Culture Reflex No No
[2023-01-25] MEDS ORDERED: Piperacillin/Tazobactam 3.375 GM in Sodium Chloride 0.9% 100 ML IVPB SCH (08:15)
[2023-01-25 08:18] LABS: Lactic Acid 1.5 mmol/L (0.5-2.2)
[2023-01-25] MEDS ORDERED: Sodium Chloride 0.9% 100 ML ONE (11:32)
[2023-01-25] MEDS: Lansoprazole 15 MG/5 ML (BATCHED)UDCUP PO SCH (11:39)
[2023-01-25] MEDS: Piperacillin/Tazobactam 3.375 GM in Sodium Chloride 0.9% 100 ML IVPB SCH ×2 (13:05→21:00)
[2023-01-25] MEDS ORDERED: Furosemide 40 MG/4 ML VIAL SLOW IVP SCH (14:00)
[2023-01-25 15:58] VITALS: BMI 27.5
[2023-01-25] MEDS: Atorvastatin Calcium 10 MG TAB PO SCH (21:11)
[2023-01-26 04:22] LABS: #Monocytes 1.1 thou/uL (0.11-0.59); #Neutrophils 7.3 thou/uL (1.40-6.50); %Basophils 0.4 % (0.0-1.0); %Eosinophils 0.1 % (0.0-10.0); %Lymphocytes 10.7 % (21.0-51.0); %Monocytes 11.8 % (0.0-10.0); %Neutrophils 76.8 % (42.0-75.0); Hematocrit 33.6 % (36.0-47.0); Hemoglobin 10.7 g/dL (12.0-16.0); Mean Corpuscular HGB CONC 31.8 g/dL (32.0-36.0); Mean Corpuscular Hemoglobin 29.7 pg (27.0-31.0); Mean Corpuscular Volume 93.3 fl (78.0-98.0); Mean Platelet Volume 9.5 fL (7.4-10.4); Platelet Count 343 10x3/uL (130-400); RBC Distribution Width 14.8 % (11.5-14.5); White Blood Cell (WBC) Count 9.6 10x3/uL (4.8-10.8)
[2023-01-26 04:46] LABS: Anion Gap 15 mmol/L (10-20); BUN (Urea Nitrogen) 29 mg/dL (9.8-20.1); Calc. Creatinine Clearance 34 mL/min (70-130); Calcium 8.8 mg/dL (7.8-10.44); Carbon Dioxide 29 mmol/L (23-31); Chloride 101 mmol/L (98-107); Estimated GFR 41; Glucose 110 mg/dL (83-110); Magnesium 2.9 mg/dL (1.6-2.6); Potassium 3.5 mmol/L (3.5-5.1); Sodium 141 mmol/L (136-145)
[2023-01-26 04:51] LABS: Phosphorus 3.3 mg/dL (2.3-4.7)
[2023-01-26] MEDS: Piperacillin/Tazobactam 3.375 GM in Sodium Chloride 0.9% 100 ML IVPB SCH (05:00)
[2023-01-26] MEDS: Levothyroxine Sodium 75 MCG TAB PO SCH (05:48)
[2023-01-26] MEDS: Sertraline 100 MG TAB PO SCH (08:30)
[2023-01-26] MEDS: Lansoprazole 15 MG/5 ML (BATCHED)UDCUP PO SCH (08:30)
[2023-01-26] MEDS ORDERED: MD-Gastroview 120 ML BOT ONE (10:31)
[2023-01-26] MEDS: Sodium Chloride 0.9% 1,000 ML IV SCH ×2 (10:40→21:52)
[2023-01-26] MEDS: Ondansetron PF 4 MG/2 ML Vial IVP PRN (11:08)
[2023-01-26] MEDS ORDERED: Piperacillin/Tazobactam 3.375 GM in Sodium Chloride 0.9% 100 ML IVPB SCH ×2 (12:00→16:00)
[2023-01-26] MEDS: Metoclopramide HCl 10 MG/2 ML VIAL IVP PRN ×2 (12:39→22:07)
[2023-01-26] MEDS: Atorvastatin Calcium 10 MG TAB PO SCH (21:21)
[2023-01-26] MEDS: Senokot S 8.6-50 MG TAB PO SCH (21:22)
[2023-01-26] MEDS ORDERED: Melatonin 3 MG TAB PO PRN (23:21)
[2023-01-27] MEDS: Metoclopramide HCl 10 MG/2 ML VIAL IVP PRN (04:22)
[2023-01-27] MEDS: Levothyroxine Sodium 75 MCG TAB PO SCH (04:22)
[2023-01-27 07:08] LABS: #Monocytes 1.5 thou/uL (0.11-0.59); #Neutrophils 9.6 thou/uL (1.40-6.50); %Basophils 0.2 % (0.0-1.0); %Monocytes 12.3 % (0.0-10.0); %Neutrophils 78.2 % (42.0-75.0); Hematocrit 33.7 % (36.0-47.0); Hemoglobin 10.6 g/dL (12.0-16.0); Mean Corpuscular HGB CONC 31.5 g/dL (32.0-36.0); Mean Corpuscular Hemoglobin 29.7 pg (27.0-31.0); Mean Corpuscular Volume 94.4 fl (78.0-98.0); Mean Platelet Volume 9.4 fL (7.4-10.4); Platelet Count 373 10x3/uL (130-400); RBC Distribution Width 14.8 % (11.5-14.5); Red Blood Cell (RBC) Count 3.57 mill/uL (4.20-5.40); White Blood Cell (WBC) Count 12.3 10x3/uL (4.8-10.8)
[2023-01-27 07:26] LABS: Anion Gap 17 mmol/L (10-20); BUN (Urea Nitrogen) 30 mg/dL (9.8-20.1); Calc. Creatinine Clearance 39 mL/min (70-130); Calcium 8.6 mg/dL (7.8-10.44); Carbon Dioxide 28 mmol/L (23-31); Chloride 106 mmol/L (98-107); Estimated GFR 49; Glucose 139 mg/dL (83-110); Potassium 2.9 mmol/L (3.5-5.1); Sodium 148 mmol/L (136-145)
[2023-01-27 09:27] LABS: Magnesium 2.5 mg/dL (1.6-2.6)
[2023-01-27] MEDS: Lansoprazole 15 MG/5 ML (BATCHED)UDCUP PO SCH (09:33)
[2023-01-27] MEDS: Polyethylene Glycol 3350 17 GM Packet PO SCH (09:33)
[2023-01-27] MEDS: Sertraline 100 MG TAB PO SCH (09:34)
[2023-01-27] MEDS: Senokot S 8.6-50 MG TAB PO SCH ×2 (09:34→20:42)
[2023-01-27] MEDS: Potassium Chloride 20 MEQ in Premix 1 BAG IVPB SCH ×3 (14:51→18:00)
[2023-01-27] MEDS: Losartan 25 MG TAB PO SCH (14:51)
[2023-01-27] MEDS: Ondansetron PF 4 MG/2 ML Vial IVP PRN (15:31)
[2023-01-27 20:40] LABS: Anion Gap 14 mmol/L (10-20); BUN (Urea Nitrogen) 22 mg/dL (9.8-20.1); Calc. Creatinine Clearance 49 mL/min (70-130); Calcium 9.1 mg/dL (7.8-10.44); Carbon Dioxide 28 mmol/L (23-31); Chloride 105 mmol/L (98-107); Estimated GFR 64; Glucose 117 mg/dL (83-110); Potassium 3.7 mmol/L (3.5-5.1); Sodium 143 mmol/L (136-145)
[2023-01-27] MEDS: Atorvastatin Calcium 10 MG TAB PO SCH (20:40)
[2023-01-27] MEDS ORDERED: traZODone HCl 50 MG TAB PO SCH (21:00)
[2023-01-27] MEDS ORDERED: Amlodipine 5 MG TAB PO PRN (21:07)
[2023-01-27] MEDS ORDERED: Amlodipine 10 MG TAB PO SCH (21:15)
[2023-01-28 04:44] LABS: #Eosinphils 0.1 thou/uL (0.0-0.7); #Monocytes 0.9 thou/uL (0.11-0.59); #Neutrophils 5.7 thou/uL (1.40-6.50); %Basophils 0.3 % (0.0-1.0); %Eosinophils 1.3 % (0.0-10.0); %Lymphocytes 14.3 % (21.0-51.0); %Monocytes 11.8 % (0.0-10.0); %Neutrophils 71.9 % (42.0-75.0); Hematocrit 31.3 % (36.0-47.0); Hemoglobin 10.1 g/dL (12.0-16.0); Mean Corpuscular HGB CONC 32.3 g/dL (32.0-36.0); Mean Corpuscular Hemoglobin 30.6 pg (27.0-31.0); Mean Corpuscular Volume 94.8 fl (78.0-98.0); Mean Platelet Volume 9.2 fL (7.4-10.4); Platelet Count 318 10x3/uL (130-400); RBC Distribution Width 14.6 % (11.5-14.5); White Blood Cell (WBC) Count 7.9 10x3/uL (4.8-10.8)
[2023-01-28 05:07] LABS: Anion Gap 14 mmol/L (10-20); BUN (Urea Nitrogen) 19 mg/dL (9.8-20.1); Calc. Creatinine Clearance 51 mL/min (70-130); Calcium 8.4 mg/dL (7.8-10.44); Carbon Dioxide 28 mmol/L (23-31); Chloride 106 mmol/L (98-107); Estimated GFR 66; Glucose 105 mg/dL (83-110); Potassium 3.5 mmol/L (3.5-5.1); Sodium 144 mmol/L (136-145)
[2023-01-28] MEDS: Levothyroxine Sodium 75 MCG TAB PO SCH (06:22)
[2023-01-28] MEDS: Lansoprazole 15 MG/5 ML (BATCHED)UDCUP PO SCH (08:33)
[2023-01-28] MEDS: Sertraline 100 MG TAB PO SCH (08:34)
[2023-01-28] MEDS: Polyethylene Glycol 3350 17 GM Packet PO SCH (08:34)
[2023-01-28] MEDS: Senokot S 8.6-50 MG TAB PO SCH (08:34)
[2023-01-28] MEDS: Losartan 25 MG TAB PO SCH (08:34)
[2023-01-28] MEDS ORDERED: Potassium Chloride 20 MEQ TAB PO SCH ×2 (09:00→17:00)
[2023-01-28] MEDS ORDERED: Non-Formulary Item 1 EACH (Losartan Potassium [Losartan Potassium] 100 MG Tablet) PO SCH (09:00)
[2023-01-28 15:52] VITALS: BP 131/63; TEMP 98.7
== END 2023-01-28 18:07 | disposition home or self-care (01) | DRG 388 ==
LOC: ERS 20:54 → ERHOLD 01-25 03:20 → 2NO 01-25 03:20 → OBSVTOIN 01-25 03:41 → 2NO 01-25 13:53
PROVIDERS: ADMIT Internal Medicine; ATTEND Internal Medicine
PROC: 0D9670Z Drainage of Stomach with Drainage Device, Via Natural or Artificial Opening (ICD-10-PCS; principal; 2023-01-25)
DX: K56.609 Unspecified intestinal obstruction, unspecified as to partial versus complete obstruction (principal); I50.33 Acute on chronic diastolic (congestive) heart failure; J96.01 Acute respiratory failure with hypoxia; N17.9 Acute kidney failure, unspecified; E87.0 Hyperosmolality and hypernatremia; I48.20 Chronic atrial fibrillation, unspecified; I13.0 Hypertensive heart and chronic kidney disease with heart failure and stage 1 through stage 4 chronic kidney disease, or unspecified chronic kidney disease; E78.5 Hyperlipidemia, unspecified; D72.829 Elevated white blood cell count, unspecified; E87.6 Hypokalemia; K63.89 Other specified diseases of intestine; E03.9 Hypothyroidism, unspecified; N18.9 Chronic kidney disease, unspecified; K21.9 Gastro-esophageal reflux disease without esophagitis; Z91.041 Radiographic dye allergy status; Z79.890 Hormone replacement therapy; Z79.899 Other long term (current) drug therapy; Z98.890 Other specified postprocedural states; Z79.82 Long term (current) use of aspirin; Z90.710 Acquired absence of both cervix and uterus; Z90.49 Acquired absence of other specified parts of digestive tract; M47.22 Other spondylosis with radiculopathy, cervical region; R29.898 Other symptoms and signs involving the musculoskeletal system; M48.02 Spinal stenosis, cervical region
CPT/HCPCS: 36415; 71045; 72141; 74177; 74250; 80048; 80053; 81001; 83605; 83735; 83880; 84100; 84443; 84484; 85025; 93005; 96374; 96375; J1200; J1940; J2270; J2272; J2405; J2543; J2765; J2930; J3480; J3490; J7050; Q9963; Q9967; S0028

== ENCOUNTER 2024-03-17 12:27 | Outpatient (CLI) | payer MEDICARE ==
[2024-03-17 14:38] LABS: #Basophils Less than 0.03 10x3/uL (0.0-0.2); %Basophils 0.3 % (0.0-1.0); %Eosinophils 0.7 % (0.0-10.0); %Lymphocytes 11.6 % (21.0-51.0); %Monocytes 7.1 % (0.0-10.0); Hematocrit 33.6 % (36.0-47.0); Hemoglobin 10.8 g/dL (12.0-16.0); Mean Corpuscular HGB CONC 32.1 g/dL (32.0-36.0); Mean Corpuscular Hemoglobin 29.6 pg (27.0-31.0); Mean Corpuscular Volume 92.1 fL (78.0-98.0); Mean Platelet Volume 9.6 fL (7.4-10.4); Platelet Count 357 10x3/uL (130-400); RBC Distribution Width 14.5 % (11.5-14.5); Red Blood Cell (RBC) Count 3.65 mill/uL (4.20-5.40)
[2024-03-17 14:46] LABS: Anion Gap 13 mmol/L (10-20); BUN (Urea Nitrogen) 13 mg/dL (9.8-20.1); Calc. Creatinine Clearance 0 mL/min (70-130); Calcium 8.6 mg/dL (7.8-10.44); Carbon Dioxide 33 mmol/L (23-31); Chloride 99 mmol/L (98-107); Estimated GFR 53; Glucose 95 mg/dL (83-110); Potassium 3.7 mmol/L (3.5-5.1); Sodium 141 mmol/L (136-145)
== END 2024-03-17 12:28 | disposition home or self-care (01) ==
LOC: LABBT 12:27
PROVIDERS: ATTEND Urology
DX: Z01.818 Encounter for other preprocedural examination (principal); N20.1 Calculus of ureter; N21.0 Calculus in bladder
CPT/HCPCS: 80048; 85025; 87086; 93005; 93010

== ENCOUNTER 2024-04-28 07:01 | Day surgery (SDC) | payer MEDICARE ==
[2024-04-25 13:06] VITALS: BMI 23.6
[2024-04-28] MEDS ORDERED: cefTRIAXone (ROCEPHIN) 1 GM VIAL ONE (07:55)
[2024-04-28] MEDS ORDERED: Sodium Chloride 0.9% 100 ML ONE (07:55)
[2024-04-28] MEDS ORDERED: Lidocaine 2% PF 5 ML VIAL ONE (08:00)
[2024-04-28] MEDS ORDERED: PROPOFOL 20 ML ONE (08:00)
[2024-04-28 08:18] LABS: #Basophils 0.04 10x3/uL (0.0-0.2); %Basophils 0.5 % (0.0-1.0); %Eosinophils 1.3 % (0.0-10.0); %Lymphocytes 13.8 % (21.0-51.0); %Monocytes 6.7 % (0.0-10.0); %Neutrophils 77.3 % (42.0-75.0); Hematocrit 30.9 % (36.0-47.0); Hemoglobin 10.1 g/dL (12.0-16.0); Mean Corpuscular HGB CONC 32.7 g/dL (32.0-36.0); Mean Corpuscular Volume 85.6 fL (78.0-98.0); Platelet Count 461 10x3/uL (130-400); RBC Distribution Width 15.4 % (11.5-14.5); Red Blood Cell (RBC) Count 3.61 mill/uL (4.20-5.40)
[2024-04-28] MEDS ORDERED: Iopamidol 15 ML ONE (08:20)
[2024-04-28] MEDS ORDERED: fentaNYL 50 mcg/mL 1 mL Vial ONE (08:25)
[2024-04-28] MEDS ORDERED: Ondansetron PF 4 MG/2 ML Vial ONE (08:27)
[2024-04-28] MEDS ORDERED: Dexamethasone 4 mg/ml Vial ONE (08:27)
[2024-04-28 08:30] LABS: Anion Gap 14 mmol/L (10-20); BUN (Urea Nitrogen) 18 mg/dL (9.8-20.1); Calc. Creatinine Clearance 31 mL/min (70-130); Calcium 8.6 mg/dL (7.8-10.44); Carbon Dioxide 33 mmol/L (23-31); Chloride 99 mmol/L (98-107); Estimated GFR 43; Glucose 96 mg/dL (83-110); Potassium 4.2 mmol/L (3.5-5.1); Sodium 142 mmol/L (136-145)
== END 2024-04-28 11:13 | disposition home or self-care (01) ==
LOC: SDC 07:01
PROVIDERS: ATTEND Urology
PROC: 0TP98DZ Removal of Intraluminal Device from Ureter, Via Natural or Artificial Opening Endoscopic (ICD-10-PCS; principal; 2024-04-28)
DX: N20.1 Calculus of ureter (principal); E03.9 Hypothyroidism, unspecified; I10 Essential (primary) hypertension; K56.609 Unspecified intestinal obstruction, unspecified as to partial versus complete obstruction; I48.91 Unspecified atrial fibrillation; E78.00 Pure hypercholesterolemia, unspecified; K21.9 Gastro-esophageal reflux disease without esophagitis; I50.9 Heart failure, unspecified; I11.0 Hypertensive heart disease with heart failure; Z79.899 Other long term (current) drug therapy; Z79.890 Hormone replacement therapy
CPT/HCPCS: 52310; 74420; 80048; 85025; J0696; J1100; J2405; J2704; J3010; Q9967